=== PATIENT | female | born 1985 | race Caucasian/White ===

== ENCOUNTER 2019-11-11 06:57 | Emergency (ER) | payer OTHER, SELFPAY ==
[2019-11-11] VITALS (12 sets, daily range): BP systolic 82–121; BP diastolic 54–87; PULSE 67–95; RESP 13–20; TEMP 36.8; O2SAT 98–100; BMI 21.2
--- NOTE | 2019-11-11 07:21 | W.ED.ABDPA2 ---
HPI - Abdominal Pain General: Chief Complaint: Abdominal Pain Stated Complaint: abd pain Time Seen by Provider: 11/11/19 07:05 Source: patient Mode of arrival: ambulatory Limitations: no limitations History of Present Illness: HPI narrative: Patient comes in today with complaints of abdominal pain. Patient has had chronic abdominal pain for the last year. Patient states that today his just got worse that she could not tolerate it anymore. Patient has had a cholecystectomy and hysterectomy in the past. Patient reports seeing Dr. Dillard and having the EGD which was negative. Patient also had a CT scan and August [id number] that was negative for any abnormalities. Patient also reports EGD that was negative, and is to follow-up in [place] for possible stenting of a bile duct which they believe may be causing the pain. Patient reports some chills but no fever. Patient appears well. Patient appears in mild pain. Associated Symptoms: Reports nausea and vomiting Related Data: Date of Last Menstrual Period: 11/01/10 Review of Systems General: Reports: 10 or more systems reviewed and unremarkable except in HPI and below GI: Reports: abdominal pain, nausea and vomiting PFSH ED PFSH: Statuses (acute, chronic, etc) shown below reflect problem list status as previously entered and may not be historically accurate Social History Smoking and tobacco status: never smoked Female Reproductive History: Date of last menstrual period: 11/01/10 Physical Exam Const: COMMON NORMALS: no apparent distress and oriented x3 GENERAL APPEARANCE: cooperative HENMT: COMMON NORMALS: normocephalic, external ears normal, EAC's normal, TM's normal bilaterally and external nose normal HEAD & SCALP: normal to inspection and normocephalic FACE & SINUS: normal facial exam NOSE: external nose normal GENERAL EAR: hearing not grossly impaired EXTERNAL EAR: Yes external ears normal EXTERNAL AUDITORY CANAL: EAC's normal TYMPANIC MEMBRANE: TM's normal bilaterally MOUTH: oral and palatal mucosa normal THROAT: posterior oropharynx normal Eye: COMMON NORMALS: PERRL and EOMs intact bilaterally PUPIL: Yes PERRL Neck/C-Spine: COMMON NORMALS: full ROM and no lymphadenopathy Lymph: LYMPHATIC: no lymphedema noted Chest: COMMONS NORMALS: inspection of chest normal and palpation of chest normal Resp: COMMON NORMALS: normal respiratory effort and clear to auscultation bilaterally AUSCULTATION: clear to auscultation bilaterally Cardio: COMMON NORMALS: regular rate and regular rhythm RATE: regular rate RHYTHM: regular rhythm GI: COMMON NORMALS: normal to inspection, nondistended, normoactive bowel sounds PALPATION: Yes tender (epigastric) and No guarding : COMMON NORMALS: Yes no CVA tenderness BLADDER/KIDNEY EXAM: Yes no CVA tenderness Back/Pelvis: COMMON NORMALS: no CVA tenderness and thoracic and lumbar spine normal to inspection Extremity: COMMON NORMALS: normal to inspection GENERAL: No edema Neuro: COMMON NORMALS: oriented x3, moves all extremities and no focal motor deficits Psych: COMMON NORMALS: mental status grossly normal and cooperative Skin: COMMON NORMALS: no rashes or lesions noted GENERAL SKIN EXAM: no rashes or lesions noted Course ED course: 1010 Patient resting well. Reviewed CT scan and ultrasound with patient no significant abnormalities are noted CT scan was similar to previous one done in August. Ultrasound showed no abnormality. Reviewed with patient recommended acute hepatitis panel, discuss alcohol and Tylenol use. Patient reported minimal use of medication and alcohol. Patient denied any other use of medications or drugs. 1113, awaiting lab for hepatitis panel, patient reports no discomfort, resting well. agrees to plan at this time. wjw Vital Signs: Vital signs: Vital Signs Temperature 98.3 F 11/11/19 07:02 Pulse Rate 68 11/11/19 10:30 Respiratory Rate 13 11/11/19 10:30 Blood Pressure 96/54 11/11/19 10:30 Pulse Oximetry 99 11/11/19 10:30 MDM - Abdominal Pain MDM Narrative: Medical decision making narrative: Patient comes in today with exacerbation of abdominal pain. Patient reports she has had this pain for the last 6 months to a year. Patient states that she has been being evaluated by Dr. Dillard and was cleared with upper GI for any gastric reflux. Patient has been on several medications without much relief. Exam notes respirations are even lungs are clear to auscultation. Skin was warm and dry color was pink. Abdomen was soft with epigastric tenderness. Differential diagnosis includes appendicitis, abdominal pain unspecified, constipation, gastroenteritis, pancreatitis, common bile duct obstruction, cirrhosis, hepatitis. Laboratory values were significant for elevation in the ALT and AST and some mild elevation in bilirubin. Patient was treated in the ER with 1 L IV fluid, Zofran, and some morphine. Patient did have relief of discomfort. Reviewed exam with patient with recommendations for follow-up with Dr. Dillard. Patient was to have a appointment at [facility] in [place] for further treatment with concerns for possible stenting the common bile duct. Patient agreed to plan and need for follow-up. Differential Diagnosis: Differential diagnosis abdominal pain: Likely abdominal pain, acute appendicitis, constipation, gastroenteritis and pancreatitis Lab Data: Labs: Lab Results 11/11/19 11/11/19 11/11/19 Range/Units 07:15 07:15 07:15 WBC 4.5 (4.0-10.0) 10^3/ uL RBC 4.32 (4.1-5.3) 10^6/u L Hgb 14.1 (11.5-15.3) g/dL Hct 41.9 (37.0-47.0) % MCV 97.0 (81-99) fL MCH 32.6 (28.0-34.0) pg MCHC 33.7 (30.0-36.0) g/dL RDW 11.8 L (12.1-15.1) % Plt Count 185 (130-400) 10^3/c mm MPV 12.0 H (7.4-10.4) fL Neut % (Auto) 88.6 % Lymph % (Auto) 5.6 % [place] % (Auto) 5.6 % Eos % (Auto) 0.0 % Baso % (Auto) 0.0 % Neut # (Auto) 4.0 (1.8-7.7) 10^3/u L Lymph # (Auto) 0.3 L (0.8-4.8) 10^3/u L [place] # (Auto) 0.3 (0.2-0.9) 10^3/u L Eos # (Auto) 0.0 (0.0-0.8) 10^3/u L Baso # (Auto) 0.0 (0.0-0.1) 10^3/u L Nucleated RBC % (a uto) 0 % Nucleated RBCs # 0.0 /100WBC Sodium 136 (136-145) mmol/L Potassium 3.6 (3.5-5.1) mmol/L Chloride 104 (98-107) mmol/L Carbon Dioxide 22 (22-29) mmol/L Anion Gap 13.6 (5-19) BUN 9 (6-20) mg/dL Creatinine 0.8 (0.5-0.9) mg/dL GFR Calculation 81.6 L (90-130) mL/min Glucose 108 (74-109) mg/dL Lactate (0.5-2.2) mmol/L Calcium 9.5 (8.6-10.0) mg/Dl Total Bilirubin 2.0 H (0.15-1.2) mg/dL AST 380 H (0-32) U/L ALT 201 H (0-33) U/L Alkaline Phosphata se 81 (35-105) IU/L Total Protein 6.4 L (6.6-8.7) g/dL Albumin 4.5 (3.5-5.2) g/dL Globulin 1.9 (1.3-4.6) g/dL Lipase 30 (13-60) U/L Urine Color (Yellow) Urine Appearance (CLEAR) Urine pH (5-7) Ur Specific Gravit y (1.005-1.030) Urine Protein (Negative) Urine Glucose (UA) (Normal) Urine Ketones (Negative) Urine Occult Blood (Negative) Urine Nitrate (Negative) Urine Bilirubin (NEGATIVE) Prot Sulfosalicyli c Acd Urine Urobilinogen (Negative) mg/dL Ur Leukocyte Samra ase (Negative) Urine RBC (0-2) /hpf Urine WBC (0-5) /hpf Ur Squamous Epith Cells (0-5) Urine Bacteria (NONE) Urine Mucus Urine HCG, Qual Negative (Negative) Acetaminophen (10-30) ug/mL Ethyl Alcohol (0-10) mg/dL 11/11/19 11/11/19 11/11/19 Range/Units 07:15 07:15 07:28 WBC (4.0-10.0) 10^3/ uL RBC (4.1-5.3) 10^6/u L Hgb (11.5-15.3) g/dL Hct (37.0-47.0) % MCV (81-99) fL MCH (28.0-34.0) pg MCHC (30.0-36.0) g/dL RDW (12.1-15.1) % Plt Count (130-400) 10^3/c mm MPV (7.4-10.4) fL Neut % (Auto) % Lymph % (Auto) % [place] % (Auto) % Eos % (Auto) % Baso % (Auto) % Neut # (Auto) (1.8-7.7) 10^3/u L Lymph # (Auto) (0.8-4.8) 10^3/u L [place] # (Auto) (0.2-0.9) 10^3/u L Eos # (Auto) (0.0-0.8) 10^3/u L Baso # (Auto) (0.0-0.1) 10^3/u L Nucleated RBC % (a uto) % Nucleated RBCs # /100WBC Sodium (136-145) mmol/L Potassium (3.5-5.1) mmol/L Chloride (98-107) mmol/L Carbon Dioxide (22-29) mmol/L Anion Gap (5-19) BUN (6-20) mg/dL Creatinine (0.5-0.9) mg/dL GFR Calculation (90-130) mL/min Glucose (74-109) mg/dL Lactate 1.0 (0.5-2.2) mmol/L Calcium (8.6-10.0) mg/Dl Total Bilirubin (0.15-1.2) mg/dL AST (0-32) U/L ALT (0-33) U/L Alkaline Phosphata se (35-105) IU/L Total Protein (6.6-8.7) g/dL Albumin (3.5-5.2) g/dL Globulin (1.3-4.6) g/dL Lipase (13-60) U/L Urine Color (Yellow) Urine Appearance (CLEAR) Urine pH (5-7) Ur Specific Gravit y (1.005-1.030) Urine Protein (Negative) Urine Glucose (UA) (Normal) Urine Ketones (Negative) Urine Occult Blood (Negative) Urine Nitrate (Negative) Urine Bilirubin (NEGATIVE) Prot Sulfosalicyli c Acd Urine Urobilinogen (Negative) mg/dL Ur Leukocyte Samra ase (Negative) Urine RBC (0-2) /hpf Urine WBC (0-5) /hpf Ur Squamous Epith Cells (0-5) Urine Bacteria (NONE) Urine Mucus Urine HCG, Qual (Negative) Acetaminophen < 5.0 L (10-30) ug/mL Ethyl Alcohol < 10 (0-10) mg/dL 11/11/19 Range/Units 07:55 WBC (4.0-10.0) 10^3/ uL RBC (4.1-5.3) 10^6/u L Hgb (11.5-15.3) g/dL Hct (37.0-47.0) % MCV (81-99) fL MCH (28.0-34.0) pg MCHC (30.0-36.0) g/dL RDW (12.1-15.1) % Plt Count (130-400) 10^3/c mm MPV (7.4-10.4) fL Neut % (Auto) % Lymph % (Auto) % [place] % (Auto) % Eos % (Auto) % Baso % (Auto) % Neut # (Auto) (1.8-7.7) 10^3/u L Lymph # (Auto) (0.8-4.8) 10^3/u L [place] # (Auto) (0.2-0.9) 10^3/u L Eos # (Auto) (0.0-0.8) 10^3/u L Baso # (Auto) (0.0-0.1) 10^3/u L Nucleated RBC % (a uto) % Nucleated RBCs # /100WBC Sodium (136-145) mmol/L Potassium (3.5-5.1) mmol/L Chloride (98-107) mmol/L Carbon Dioxide (22-29) mmol/L Anion Gap (5-19) BUN (6-20) mg/dL Creatinine (0.5-0.9) mg/dL GFR Calculation (90-130) mL/min Glucose (74-109) mg/dL Lactate (0.5-2.2) mmol/L Calcium (8.6-10.0) mg/Dl Total Bilirubin (0.15-1.2) mg/dL AST (0-32) U/L ALT (0-33) U/L Alkaline Phosphata se (35-105) IU/L Total Protein (6.6-8.7) g/dL Albumin (3.5-5.2) g/dL Globulin (1.3-4.6) g/dL Lipase (13-60) U/L Urine Color Yellow (Yellow) Urine Appearance Hazy A (CLEAR) Urine pH 8 H (5-7) Ur Specific Gravit y 1.005 (1.005-1.030) Urine Protein Neg (Negative) Urine Glucose (UA) Norm (Normal) Urine Ketones 1+ H (Negative) Urine Occult Blood Neg (Negative) Urine Nitrate Negative (Negative) Urine Bilirubin Neg (NEGATIVE) Prot Sulfosalicyli c Acd Negative Urine Urobilinogen 4 H (Negative) mg/dL Ur Leukocyte Samra ase Negative (Negative) Urine RBC None (0-2) /hpf Urine WBC None (0-5) /hpf Ur Squamous Epith Cells 5-10 H (0-5) Urine Bacteria Trace (NONE) Urine Mucus Trace Urine HCG, Qual (Negative) Acetaminophen (10-30) ug/mL Ethyl Alcohol (0-10) mg/dL Discharge Plan Discharge Patient Disposition: Home, Self-Care Clinical Impression: Elevated liver enzymes Abdominal pain Qualifiers: Abdominal location: epigastric Qualified Code(s): R10.13 - Epigastric pain Condition: Stable Prescriptions: New dicyclomine 20 mg tablet 20 mg PO TID PRN (Reason: abdominal pain) Qty: 30 RF: 0 ondansetron HCl 4 mg tablet 4 mg PO Q8H PRN (Reason: nausea and vomiting) 4 Days Qty: 12 RF: 0 No Action doxycycline hyclate 100 mg Capsule 100 mg PO BID PRN (Reason: UTI) RF: 0 Discharge Orders: Discharge Order (Routine); Ordered 11/11/19 Ordered By: Jatinder Dawkins Referrals: Mike Dillard MD [Family Provider] - Discharge Diet: As Directed Discharge Activity: Resume usual activity Patient Instructions: Abdominal Pain (ED) Activity Restrictions/Additional Instructions: Drink plenty of fluids Activity as tolerated Avoid greasy, spicy and acidic foods Follow-up with primary care, Dr. Garcia Return to ER for uncontrolled pain or high fever Coding Level of Care Code ED Sales Development Executive for Mitchell Henry Exam Problem Focused
[2019-11-11 07:30] LABS: Hematocrit 41.9 % (37.0-47.0); Hemoglobin 14.1 g/dL (11.5-15.3); Lymphocytes # 0.3 10^3/uL (0.8-4.8); Lymphocytes % 5.6 %; Mean Corpuscular HGB Conc 33.7 g/dL (30.0-36.0); Mean Corpuscular Hemoglobin 32.6 pg (28.0-34.0); Monocytes # 0.3 10^3/uL (0.2-0.9); Monocytes % 5.6 %; Neutrophils % 88.6 %; Nucleated Red Blood Cells % 0 %; Platelet Count 185 10^3/cmm (130-400); Red Blood Count 4.32 10^6/uL (4.1-5.3); Red Cell Distribution Width 11.8 % (12.1-15.1); White Blood Count 4.5 10^3/uL (4.0-10.0)
[2019-11-11] MEDS: morphine 4 mg/mL SDV 1 mL 2 MG IVP (07:33)
[2019-11-11] MEDS: sodium chloride 0.9% 1,000 ML 999 ML IV (07:33)
[2019-11-11] MEDS: ondansetron 2 mg/ML SDV 2 mL 4 MG IVP (07:33)
[2019-11-11] MEDS: pantoprazole 40 mg SDV IVP (07:33)
[2019-11-11 07:41] LABS: Alanine Aminotransferase 201 U/L (0-33); Albumin Level 4.5 g/dL (3.5-5.2); Alkaline Phosphatase 81 IU/L (35-105); Anion Gap 13.6 (5-19); Aspartate Amino Transferase 380 U/L (0-32); Blood Urea Nitrogen 9 mg/dL (6-20); Calcium 9.5 mg/Dl (8.6-10.0); Carbon Dioxide 22 mmol/L (22-29); Chloride 104 mmol/L (98-107); Globulin 1.9 g/dL (1.3-4.6); Glomerular Filtration Rate 81.6 mL/min (90-130); Glucose 108 mg/dL (74-109); Lipase 30 U/L (13-60); Potassium 3.6 mmol/L (3.5-5.1); Sodium 136 mmol/L (136-145); Total Protein 6.4 g/dL (6.6-8.7)
--- NOTE | 2019-11-11 07:45 | USR_ITS ---
PROCEDURE INFORMATION: Exam: US Abdomen Limited, Right Upper Quadrant Exam date and time: 11/11/2019 8:03 AM Age: 33 years old Clinical indication: Abdominal pain; Prior surgery; Surgery date: 6+ months; Surgery type: Cholecystectomy, hysterectomy; Additional info: Epigastric pain, elevated lft's, HX of choley TECHNIQUE: Imaging protocol: Real-time ultrasound of the abdomen with image documentation. Examination was focused on the right upper quadrant. COMPARISON: CT abdomen pelvis with contrast August 29, 2019 US Renal Kidney Structu* [id number] 03/25/2016 8:46 AM FINDINGS: Liver: Liver normal in size and echotexture. No visualized masses. Main portal vein patent with flow in the appropriate direction toward the liver. Gallbladder: Status post cholecystectomy. No obvious abnormality seen in the gallbladder fossa. Common bile duct: The common duct measures 6 mm near the liver hilum and tapers distally, similar to prior CT. Pancreas: Visualized pancreas unremarkable. Right kidney: The right kidney measures 12.2 x 5.5 x 3.9 cm with normal cortical thickness and echogenicity. No hydronephrosis. No visualized stones or masses. Grossly normal Doppler of the renal hilum. Aorta: Abdominal aorta normal in caliber. Inferior vena cava: Visualized IVC normal in caliber. Intraperitoneal space: No free fluid. US/US abdomen limited [id number] IMPRESSION: 1. No acute findings. 2. Status post cholecystectomy.
--- NOTE | 2019-11-11 07:45 | CTR_ITS ---
PROCEDURE INFORMATION: Exam: CT Abdomen With Contrast Exam date and time: 11/11/2019 8:01 AM Age: 33 years old Clinical indication: Abdominal pain; Epigastric; Prior surgery; Surgery date: 6+ months; Surgery type: Gb, hysto; Additional info: Abd pain, elevated lft's TECHNIQUE: Imaging protocol: Computed tomography images of the abdomen with intravenous contrast. Enteric contrast not given. Total DLP: 368.76 mGy-cm Radiation optimization: All CT scans at this facility use at least one of these dose optimization techniques: automated exposure control; mA and/or kV adjustment per patient size (includes targeted exams where dose is matched to clinical indication); or iterative reconstruction. Contrast material: OMNI 300; Contrast volume: 95 ml; Contrast route: RT AC; COMPARISON: Right upper quadrant ultrasound today. CT abdomen pelvis w con* [id number] 08/29/2019 9:21 AM FINDINGS: Lungs: No acute findings within the included lung bases. Liver: The liver is normal in size. No lesions. Gallbladder and bile ducts: Mildly dilated intra and extrahepatic bile ducts similar to prior and presumably due to reservoir effect following cholecystectomy. No visualized ductal stones. Common duct measures a maximum of 6 mm in caliber. Pancreas: Normal. No ductal dilation. Spleen: Normal. No splenomegaly. Adrenals: Normal. No mass. Kidneys and ureters: The kidneys enhance normally. No hydronephrosis or masses. Stomach and bowel: Unremarkable. No obstruction. No inflammatory changes appreciated; lack of enteric contrast does limit evaluation. Intraperitoneal space: Unremarkable. No free air. No significant fluid collection. Lymph nodes: Unremarkable. No enlarged lymph nodes. Vasculature: Unremarkable. No abdominal aortic aneurysm. Bones/joints: No acute or aggressive osseous lesion. Soft tissues: Unremarkable. CT/CT abdomen w con* [id number] IMPRESSION: 1. No acute findings. 2. There is again mild dilation of the intra and extrahepatic ducts, similar to August 29, 2019 and presumably secondary to reservoir effect in the setting of cholecystectomy. Radiation Dose CTDIVOL = (mGy): DLP = 368.76 (mGy-cm)
--- NOTE | 2019-11-11 07:58 | PC.NURSE ---
pt ambulated self to bathroom, provided UA. UA in lab. pt back on the monitor and resting comfortably with no further needs stated.
[2019-11-11 08:32] LABS: Blood Urine Neg (Negative); Glucose Urine UA Norm (Normal); Ketones Urine 1+ (Negative); Nitrate Urine Negative (Negative); Protein Urine Neg (Negative); Specific Gravity, Urine 1.005 (1.005-1.030); Urine Appearance Hazy (CLEAR); Urine Color Yellow (Yellow); pH Urine 8 (5-7)
[2019-11-11 08:33] LABS: Bacteria Urine TRACE; Bilirubin Urine Neg (NEGATIVE); Leukocyte Esterase Urine Negative (Negative); Mucus Urine TRACE; Sulfosalicylic Acid Urine Negative; Urobilinogen Urine 4 mg/dL (Negative)
[2019-11-11 08:34] LABS: Add Urine Culture? No
[2019-11-11] MEDS: iohexol 300 mg/mL 100 mL Btl IV (08:45)
[2019-11-11 09:45] LABS: Acetaminophen < 5.0 ug/mL (10-30); Alcohol Level < 10 mg/dL (0-10)
[2019-11-11 13:58] LABS: Hepatitis A Antibody IgM. Non-Reactive (Nonreactive); Hepatitis B Core IgM Non-Reactive (Nonreactive); Hepatitis B Surface Antigen. Non-Reactive (Nonreactive); Hepatitis C Virus Antibody Non-Reactive (Nonreactive)
== END 2019-11-11 12:50 | disposition home or self-care (01) ==
PROVIDERS: Emergency Provider Nurse Practitioner Family; Family Provider Internal Medicine
DX: R10.13 Epigastric pain (principal); R74.8 Abnormal levels of other serum enzymes
CPT/HCPCS: 36415; 74160; 76705; 80053; 80074; 80307; 81001; 81025; 83605; 83690; 85025; 96360; 96374; 99282; C9113; J2270; J2405; J7030; Q9967

== ENCOUNTER → 2019-11-20 10:47 | Outpatient (BNVA) | payer OTHER, SELFPAY | PROVIDERS: Family Provider Internal Medicine; Visit Provider Family Medicine | DX: R74.8 Abnormal levels of other serum enzymes (principal) | CPT/HCPCS: 80076 ==

== ENCOUNTER → 2019-11-27 17:24 | Outpatient (BNVA) | payer OTHER, SELFPAY | PROVIDERS: Family Provider Internal Medicine; Visit Provider Family Medicine | DX: K83.4 Spasm of sphincter of Oddi (principal) | CPT/HCPCS: 80053; 83690; 85025 ==

== ENCOUNTER 2020-01-25 21:54 | Emergency (ER) | payer OTHER, SELFPAY ==
--- NOTE | 2020-01-25 22:01 | ED_ITS ---
Entered by Evangelina Nolasco, acting as scribe for Neil Lopez MD HPI - Abdominal Pain General: Chief Complaint: Abdominal Pain Stated Complaint: and pain Time Seen by Provider: 01/25/20 22:01 History of Present Illness: HPI narrative: 34 yo f came to the er pov for abd pain. Onset was today. Pt states that she was in the er in november and her liver enzymes were high. Pt said that she has been to see in [place] because of her liver and her pancreatic ducts both collapsed. She had 2 stents put in Dec 04. Pt said that her abd pain,the nausea and vomiting feels like it did when she came in, in November. Her doctor told her that the ducts might fail again. MD elicited complaint: abdominal pain Pertinent past history: other (stents) Onset (ago): day(s) (today) Pain Consistency: constant Location: [facility] Severity: moderate Quality: sharp Radiation: none Migration to: no migration Exacerbating factors: nothing Relieving factors: nothing Associated Symptoms: Reports nausea and vomiting; Denies fever(s) Related Data: Date of Last Menstrual Period: 11/01/10 Patient : No Review of Systems General: Reports: other (negative unless marked) Const: Denies: fever Resp: Denies: shortness of breath GI: Reports: nausea and vomiting Musc: Denies: neck pain Neuro: Denies: headache PFSH ED PFSH: Medical History (Updated 01/25/20 @ 22:36 by Neil Lopez MD) Sphincter of Oddi dysfunction Surgical History (Updated 12/19/19 @ 22:05 by AMERICO Felix) History of breast surgery History of delivery History of cholecystectomy History of hysterectomy Social History Smoking and tobacco status: never smoked Alcohol intake: never History of recent travel: No Female Reproductive History: Date of last menstrual period: 11/01/10 Physical Exam Const: COMMON NORMALS: no apparent distress, oriented x3 and healthy appearing HENMT: COMMON NORMALS: normocephalic and head/scalp atraumatic HEAD & SCALP: normocephalic and atraumatic Eye: COMMON NORMALS: PERRL and EOMs intact bilaterally PUPIL: Yes PERRL Neck/C-Spine: COMMON NORMALS: full ROM and supple Chest: COMMONS NORMALS: inspection of chest normal and palpation of chest normal Resp: COMMON NORMALS: normal respiratory effort, no retractions, no use of accessory muscles and clear to auscultation bilaterally AUSCULTATION: clear to auscultation bilaterally Cardio: COMMON NORMALS: regular rate, regular rhythm and no murmurs RATE: regular rate RHYTHM: regular rhythm GI: COMMON NORMALS: normal to inspection, nondistended, normoactive bowel sounds, soft to palpation, non-tender and no masses PALPATION: Yes soft Extremity: COMMON NORMALS: normal to inspection and full ROM Neuro: COMMON NORMALS: oriented x3, moves all extremities and no focal motor deficits Psych: COMMON NORMALS: mental status grossly normal, thought process normal and cooperative THOUGHT PROCESS: normal thought process Skin: COMMON NORMALS: no rashes or lesions noted and no wounds GENERAL SKIN EXAM: no rashes or lesions noted Course Vital Signs: Vital signs: Vital Signs Temperature 98.6 F 01/25/20 22:03 Pulse Rate 86 01/25/20 22:54 Respiratory Rate 18 01/25/20 22:54 Blood Pressure 104/66 01/25/20 22:54 Pulse Oximetry 97 01/25/20 22:54 MDM - Abdominal Pain MDM Narrative: Medical decision making narrative: Patient presents here with abdominal pain. Her pain is much improved here. She has had her gallbladder out. Exam shows no tenderness no signs of acute surgical abdomen. Patient's lab work including white count and lipase and liver enzymes are all normal. Patient is stable for discharge and return if worsening. Lab Data: Labs: Lab Results 01/25/20 01/25/20 01/25/20 Range/Units 22:08 22:08 22:25 WBC 6.1 (4.0-10.0) 10^3/ uL RBC 3.96 L (4.1-5.3) 10^6/u L Hgb 12.7 (11.5-15.3) g/dL Hct 39.1 (37.0-47.0) % MCV 98.7 (81-99) fL MCH 32.1 (28.0-34.0) pg MCHC 32.5 (30.0-36.0) g/dL RDW 11.9 L (12.1-15.1) % Plt Count 180 (130-400) 10^3/c mm MPV 11.7 H (7.4-10.4) fL Neut % (Auto) 73.3 % Lymph % (Auto) 19.5 % [place] % (Auto) 6.4 % Eos % (Auto) 0.3 % Baso % (Auto) 0.2 % Neut # (Auto) 4.5 (1.8-7.7) 10^3/u L Lymph # (Auto) 1.2 (0.8-4.8) 10^3/u L [place] # (Auto) 0.4 (0.2-0.9) 10^3/u L Eos # (Auto) 0.0 (0.0-0.8) 10^3/u L Baso # (Auto) 0.0 (0.0-0.1) 10^3/u L Nucleated RBC % (a uto) 0 % Nucleated RBCs # 0.0 /100WBC Sodium 139 (136-145) mmol/L Potassium 3.7 (3.5-5.1) mmol/L Chloride 104 (98-107) mmol/L Carbon Dioxide 23 (22-29) mmol/L Anion Gap 15.7 (5-19) BUN 11 (6-20) mg/dL Creatinine 0.9 (0.5-0.9) mg/dL GFR Calculation 70.8 L (90-130) mL/min Glucose 105 (65-115) mg/dL Calculated Osmolal ity 284 L (285-295) mOsm/k g Calcium 9.5 (8.5-10.5) mg/dL Total Bilirubin 0.4 (0.15-1.2) mg/dL AST 23 (0-32) U/L ALT 28 (0-33) U/L Alkaline Phosphata se 44 (35-105) IU/L Total Protein 6.6 (6.6-8.7) g/dL Albumin 4.4 (3.5-5.2) g/dL Globulin 2.2 (1.3-4.6) g/dL Lipase 18 (13-60) U/L Urine Color Yellow (Yellow) Urine Appearance Clear (CLEAR) Urine pH 5 (5-7) Ur Specific Gravit y 1.020 (1.005-1.030) Urine Protein Neg (Negative) Urine Glucose (UA) Norm (Normal) Urine Ketones Negative (Negative) Urine Blood Neg (Negative) Urine Nitrate Negative (Negative) Urine Bilirubin Neg (NEGATIVE) Urine Urobilinogen Norm (Negative) mg/dL Ur Leukocyte Samra ase Negative (Negative) Discharge Plan Discharge Patient Disposition: Home, Self-Care Clinical Impression: Abdominal pain Qualifiers: Abdominal location: generalized Qualified Code(s): R10.84 - Generalized abdominal pain Condition: Stable Prescriptions: New Zofran 4 mg tablet 4 mg PO QID PRN (Reason: nausea and vomiting) Qty: 14 RF: 0 No Action Zenpep 10,000-32,000 -42,000 unit capsule,delayed release(DR/EC) 1 cap PO .QAC Qty: 90 RF: 3 doxycycline hyclate 100 mg Capsule 100 mg PO BID PRN (Reason: UTI) RF: 0 dicyclomine 20 mg tablet 20 mg PO TID PRN (Reason: abdominal pain) Qty: 30 RF: 0 Discharge Orders: Discharge Order (Routine); Ordered 01/25/20 Ordered By: Neil Lopez Referrals: Mike Dillard MD [Primary Care Provider] - 4-7 days Discharge Diet: Advance as tolerated Discharge Activity: Resume usual activity Patient Instructions: Abdominal Pain (ED) Discharge Date/Time: 01/25/20 22:55 Coding Level of Care Code ED Senior Medical Director for [facility] The documentation recorded by the Gaurav white Stephanie Lyn, accurately reflects the service I personally performed and the decisions made by John armstrong Korby, MD Jan 25, 2020 21:54
[2020-01-25 22:03] VITALS: BP 129/88; PULSE 66; RESP 16; TEMP 37; O2SAT 100; BMI 20.5
[2020-01-25 22:14] LABS: Basophils % 0.2 %; Eosinophils % 0.3 %; Hematocrit 39.1 % (37.0-47.0); Hemoglobin 12.7 g/dL (11.5-15.3); Lymphocytes # 1.2 10^3/uL (0.8-4.8); Lymphocytes % 19.5 %; Mean Corpuscular HGB Conc 32.5 g/dL (30.0-36.0); Mean Corpuscular Hemoglobin 32.1 pg (28.0-34.0); Mean Corpuscular Volume 98.7 fL (81-99); Mean Platelet Volume 11.7 fL (7.4-10.4); Monocytes # 0.4 10^3/uL (0.2-0.9); Monocytes % 6.4 %; Neutrophils # 4.5 10^3/uL (1.8-7.7); Neutrophils % 73.3 %; Nucleated Red Blood Cells % 0 %; Platelet Count 180 10^3/cmm (130-400); Red Blood Count 3.96 10^6/uL (4.1-5.3); Red Cell Distribution Width 11.9 % (12.1-15.1); White Blood Count 6.1 10^3/uL (4.0-10.0)
[2020-01-25 22:19] VITALS: RESP 16; O2SAT 98
[2020-01-25] MEDS: morphine 4 mg/mL SDV 1 mL IVP (22:19)
[2020-01-25] MEDS: sodium chloride 0.9% 1,000 ML 999 ML IV (22:19)
[2020-01-25] MEDS: ondansetron 2 mg/ML SDV 2 mL 4 MG IVP (22:19)
[2020-01-25 22:31] LABS: Alanine Aminotransferase 28 U/L (0-33); Albumin Level 4.4 g/dL (3.5-5.2); Alkaline Phosphatase 44 IU/L (35-105); Anion Gap 15.7 (5-19); Aspartate Amino Transferase 23 U/L (0-32); Blood Urea Nitrogen 11 mg/dL (6-20); Calcium 9.5 mg/dL (8.5-10.5); Carbon Dioxide 23 mmol/L (22-29); Chloride 104 mmol/L (98-107); Globulin 2.2 g/dL (1.3-4.6); Glomerular Filtration Rate 70.8 mL/min (90-130); Glucose 105 mg/dL (65-115); Lipase 18 U/L (13-60); Osmolality Calculated 284 mOsm/kg (285-295); Potassium 3.7 mmol/L (3.5-5.1); Sodium 139 mmol/L (136-145); Total Bilirubin 0.4 mg/dL (0.15-1.2); Total Protein 6.6 g/dL (6.6-8.7)
[2020-01-25 22:46] LABS: Add Urine Microscopic? NO
[2020-01-25 22:47] LABS: Bilirubin Urine Neg (NEGATIVE); Blood Urine Neg (Negative); Glucose Urine UA Norm (Normal); Ketones Urine Negative (Negative); Leukocyte Esterase Urine Negative (Negative); Nitrate Urine Negative (Negative); Protein Urine Neg (Negative); Urine Appearance Clear (CLEAR); Urine Color Yellow (Yellow); Urobilinogen Urine Norm (Negative); pH Urine 5 (5-7)
[2020-01-25 22:54] VITALS: BP 104/66; PULSE 86; RESP 18; O2SAT 97
== END 2020-01-25 22:55 | disposition home or self-care (01) ==
PROVIDERS: Emergency Provider Emergency Medicine; Family Provider Internal Medicine; PCP Internal Medicine
DX: R10.9 Unspecified abdominal pain (principal); Z90.49 Acquired absence of other specified parts of digestive tract
CPT/HCPCS: 12345; 80053; 81003; 83690; 85025; 96361; 96374; 96375; 99282; 99283; A9270; J2270; J2405; J7030

== ENCOUNTER → 2020-04-19 09:38 | Outpatient (BNVA) | payer OTHER, SELFPAY | PROVIDERS: Family Provider Internal Medicine; PCP Family Medicine; Visit Provider Nurse Practitioner Family | DX: Z11.59 Encounter for screening for other viral diseases (principal); R11.0 Nausea; R14.0 Abdominal distension (gaseous); R53.83 Other fatigue; R10.13 Epigastric pain | CPT/HCPCS: 80053; 82150; 83690; 85025 ==

== ENCOUNTER 2020-05-26 18:38 | Emergency (ER) | payer OTHER, SELFPAY ==
[2020-05-26 19:02] VITALS: BP 122/85; PULSE 77; RESP 14; TEMP 36.8; O2SAT 98; BMI 20.8
--- NOTE | 2020-05-26 19:16 | ED_ITS ---
HPI - Abdominal Pain General: Chief Complaint: Abdominal Pain Stated Complaint: abd pain/post op Time Seen by Provider: 05/26/20 19:05 Source: patient Mode of arrival: ambulatory Limitations: no limitations History of Present Illness: HPI narrative: Patient is a 34-year-old female who presents to ED today with complaint of upper abdominal pain. 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 She tells me she was not discharged home with any pain medications. She fears the procedure has caused pancreatitis. She tells me she is having severe nausea. She has not been running fevers. MD elicited complaint: abdominal pain Onset (ago): day(s) Pain Consistency: constant Location: Epigastric, LUQ, RUQ and LLQ Severity: severe Quality: sharp Radiation: back Migration to: no migration Exacerbating factors: eating and movement Relieving factors: nothing Context: recent surgery/procedure (ERCP) and history of similar episodes Associated Symptoms: Reports nausea; Denies chills, constipation, diarrhea, dysuria, fever(s) and vomiting Related Data: Date of Last Menstrual Period: 11/01/10 Patient : No Review of Systems Const: Denies: fever(s) or chills Card: Denies: chest pain Resp: Denies: dyspnea GI: Reports: abdominal pain and nausea; Denies: vomiting, diarrhea or constipation : Denies: flank pain, difficulty voiding, dysuria, urinary frequency, urinary urgency or urinary hesitancy Musc: Denies: neck pain or back pain Skin/Breast: Denies: rash Neuro: Denies: headache(s), numbness in extremities, weakness in extremities or sensory changes PFS ED PFSH: Medical History (Updated 05/26/20 @ 20:54 by SAMREEN Argueta) Sphincter of Oddi dysfunction Surgical History History of breast surgery History of delivery History of cholecystectomy History of hysterectomy Family History Family/Other Cancer 2 paternal aunts Diabetes Grandfather Stroke paternal Father Myocardial infarction Mother Thyroid disease Other Hypertension Social History Smoking and tobacco status: never smoked Alcohol intake: never History of recent travel: No Female Reproductive History: Date of last menstrual period: 11/01/10 Physical Exam Const: COMMON NORMALS: average body habitus, patient oriented x3, no limitations, healthy appearing, alert and well nourished GENERAL APPEARANCE: cooperative and in distress (appears uncomfortable ) Resp: COMMON NORMALS: normal respiratory effort and clear to auscultation bilaterally AUSCULTATION: clear to auscultation bilaterally Cardio: COMMON NORMALS: regular rate and regular rhythm RATE: regular rate RHYTHM: regular rhythm GI: COMMON NORMALS: No hepatosplenomegaly present and no masses INSPECTION: Yes normal to inspection AUSCULTATION: Yes normoactive bowel sounds PALPATION: Yes Tenderness to palpation present (GI) (severe pain to upper abdomen) and Yes No hepatosplenomegaly present : COMMON NORMALS: Yes no CVA tenderness BLADDER/KIDNEY EXAM: Yes no CVA tenderness Back/Pelvis: COMMON NORMALS: no CVA tenderness Neuro: COMMON NORMALS: patient oriented x3 SENSORIUM/ORIENTATION: Yes alert Skin: COMMON NORMALS: no rashes or lesions noted GENERAL SKIN EXAM: no rashes or lesions noted Course Consultations: Consultation #1: Dr. Barnard-commission associate for GI/endoscopy; did not recommend any further management or imaging at this time. Vital Signs: Vital signs: Vital Signs Temperature 98.2 F 05/26/20 19:02 Pulse Rate 80 05/26/20 19:31 Respiratory Rate 16 05/26/20 19:41 Blood Pressure 124/83 05/26/20 19:31 Pulse Oximetry 100 05/26/20 19:41 MDM - Abdominal Pain MDM Narrative: Medical decision making narrative: Patient's LFTs and lipase are normal. She has no white count. No fevers. Spoke to at [facility] who did not recommend any imaging at this time. Stated it was appropriate to treat pts pain and have her contact the office tomorrow for followup Lab Data: Labs: Lab Results 05/26/20 05/26/20 05/26/20 Range/Units 19:21 19:21 19:21 WBC 4.6 (4.0-10.0) 10^3/ uL RBC 3.99 L (4.1-5.3) 10^6/u L Hgb 13.0 (11.5-15.3) g/dL Hct 39.2 (37.0-47.0) % MCV 98.2 (81-99) fL MCH 32.6 (28.0-34.0) pg MCHC 33.2 (30.0-36.0) g/dL RDW 11.5 L (12.1-15.1) % Plt Count 226 (130-400) 10^3/c mm MPV 11.7 H (7.4-10.4) fL Neut % (Auto) 58.5 % Lymph % (Auto) 31.2 % [place] % (Auto) 9.0 % Eos % (Auto) 0.7 % Baso % (Auto) 0.4 % Neut # (Auto) 2.66 (1.8-7.7) 10^3/u L Lymph # (Auto) 1.4 (0.8-4.8) 10^3/u L [place] # (Auto) 0.4 (0.2-0.9) 10^3/u L Eos # (Auto) 0.0 (0.0-0.8) 10^3/u L Baso # (Auto) 0.0 (0.0-0.1) 10^3/u L Nucleated RBC % (a uto) 0 % Nucleated RBCs # 0.0 /100WBC Sodium 140 (136-145) mmol/L Potassium 3.6 (3.5-5.1) mmol/L Chloride 105 (98-107) mmol/L Carbon Dioxide 27 (22-29) mmol/L Anion Gap 11.6 (5-19) BUN 9 (6-20) mg/dL Creatinine 0.8 (0.5-0.9) mg/dL GFR Calculation 81.2 L (90-130) mL/min Glucose 91 (65-115) mg/dL Calculated Osmolal ity 286 (285-295) mOsm/k g Calcium 9.7 (8.5-10.5) mg/dL Total Bilirubin 0.4 (0.15-1.2) mg/dL AST 20 (0-32) U/L ALT 18 (0-33) U/L Alkaline Phosphata se 49 (35-105) IU/L Total Protein 6.6 (6.6-8.7) g/dL Albumin 4.6 (3.5-5.2) g/dL Globulin 2.0 (1.3-4.6) g/dL Lipase 30 (13-60) U/L HCG, Qual Negative (Negative) Urine Color (Yellow) Urine Appearance (CLEAR) Urine pH (5-7) Ur Specific Gravit y (1.005-1.030) Urine Protein (Negative) Urine Glucose (UA) (Normal) Urine Ketones (Negative) Urine Blood (Negative) Urine Nitrate (Negative) Urine Bilirubin (NEGATIVE) Urine Urobilinogen (Negative) mg/dL Ur Leukocyte Samra ase (Negative) 05/26/20 Range/Units 20:10 WBC (4.0-10.0) 10^3/ uL RBC (4.1-5.3) 10^6/u L Hgb (11.5-15.3) g/dL Hct (37.0-47.0) % MCV (81-99) fL MCH (28.0-34.0) pg MCHC (30.0-36.0) g/dL RDW (12.1-15.1) % Plt Count (130-400) 10^3/c mm MPV (7.4-10.4) fL Neut % (Auto) % Lymph % (Auto) % [place] % (Auto) % Eos % (Auto) % Baso % (Auto) % Neut # (Auto) (1.8-7.7) 10^3/u L Lymph # (Auto) (0.8-4.8) 10^3/u L [place] # (Auto) (0.2-0.9) 10^3/u L Eos # (Auto) (0.0-0.8) 10^3/u L Baso # (Auto) (0.0-0.1) 10^3/u L Nucleated RBC % (a uto) % Nucleated RBCs # /100WBC Sodium (136-145) mmol/L Potassium (3.5-5.1) mmol/L Chloride (98-107) mmol/L Carbon Dioxide (22-29) mmol/L Anion Gap (5-19) BUN (6-20) mg/dL Creatinine (0.5-0.9) mg/dL GFR Calculation (90-130) mL/min Glucose (65-115) mg/dL Calculated Osmolal ity (285-295) mOsm/k g Calcium (8.5-10.5) mg/dL Total Bilirubin (0.15-1.2) mg/dL AST (0-32) U/L ALT (0-33) U/L Alkaline Phosphata se (35-105) IU/L Total Protein (6.6-8.7) g/dL Albumin (3.5-5.2) g/dL Globulin (1.3-4.6) g/dL Lipase (13-60) U/L HCG, Qual (Negative) Urine Color Yellow (Yellow) Urine Appearance Clear (CLEAR) Urine pH 5 (5-7) Ur Specific Gravit y 1.020 (1.005-1.030) Urine Protein Neg (Negative) Urine Glucose (UA) Norm (Normal) Urine Ketones Negative (Negative) Urine Blood Neg (Negative) Urine Nitrate Negative (Negative) Urine Bilirubin Neg (NEGATIVE) Urine Urobilinogen Norm (Negative) mg/dL Ur Leukocyte Samra ase Negative (Negative) Discharge Plan Discharge Patient Disposition: Home Clinical Impression: Post-operative pain Condition: Stable Prescriptions: New hydrocodone-acetaminophen 5-325 mg tablet 1 tab PO Q6H PRN (Reason: pain) Qty: 15 RF: 0 No Action amoxicillin-pot clavulanate [Augmentin] 875-125 mg tablet 1 tab PO BID Qty: 14 RF: 0 Mucinex 1,200 mg tablet extended release 12hr 1,200 mg PO BID Qty: 14 RF: 0 pantoprazole 20 mg tablet,delayed release (DR/EC) 20 mg PO DAILY Qty: 30 RF: 0 dicyclomine 20 mg tablet 20 mg PO TID PRN (Reason: abdominal pain) Qty: 30 RF: 0 Zenpep 10,000-32,000 -42,000 unit capsule,delayed release(DR/EC) 1 cap PO .QAC Qty: 150 RF: 8 Zofran 4 mg tablet 4 mg PO QID PRN (Reason: nausea and vomiting) Qty: 14 RF: 0 Discharge Orders: Discharge Order (Routine); Ordered 05/26/20 Ordered By: Maggie Jiang Referrals: Madison Ireland DO [Primary Care Provider] - Activity Restrictions/Additional Instructions: As discussed please contact your surgeon's office tomorrow to schedule follow-up visit. You may take pain medications as prescribed for severe pain. Return to the emergency department for worsening or severe abdominal pain, repetitive episodes of vomiting, fevers greater than 100.4, or any other concerns you may have. I hope you begin to feel better soon. Coding Level of Care Code ED Farm Technician for [facility] Exam Detailed
[2020-05-26 19:31] VITALS: BP 124/83; PULSE 80; RESP 16; O2SAT 100
[2020-05-26 19:31] LABS: Basophils % 0.4 %; Eosinophils % 0.7 %; Hematocrit 39.2 % (37.0-47.0); Lymphocytes # 1.4 10^3/uL (0.8-4.8); Lymphocytes % 31.2 %; Mean Corpuscular HGB Conc 33.2 g/dL (30.0-36.0); Mean Corpuscular Hemoglobin 32.6 pg (28.0-34.0); Mean Corpuscular Volume 98.2 fL (81-99); Mean Platelet Volume 11.7 fL (7.4-10.4); Monocytes # 0.4 10^3/uL (0.2-0.9); Neutrophils # 2.66 10^3/uL (1.8-7.7); Neutrophils % 58.5 %; Nucleated Red Blood Cells % 0 %; Platelet Count 226 10^3/cmm (130-400); Red Blood Count 3.99 10^6/uL (4.1-5.3); Red Cell Distribution Width 11.5 % (12.1-15.1); White Blood Count 4.6 10^3/uL (4.0-10.0)
[2020-05-26 19:32] VITALS: O2SAT 100
[2020-05-26 19:41] VITALS: RESP 16; O2SAT 100
[2020-05-26] MEDS: fentaNYL 50 mcg/mL INJ 2mL IVP (19:41)
[2020-05-26] MEDS: ondansetron 2 mg/ML SDV 2 mL 4 MG IVP (19:42)
[2020-05-26 19:44] LABS: Alanine Aminotransferase 18 U/L (0-33); Albumin Level 4.6 g/dL (3.5-5.2); Alkaline Phosphatase 49 IU/L (35-105); Anion Gap 11.6 (5-19); Aspartate Amino Transferase 20 U/L (0-32); Blood Urea Nitrogen 9 mg/dL (6-20); Calcium 9.7 mg/dL (8.5-10.5); Carbon Dioxide 27 mmol/L (22-29); Chloride 105 mmol/L (98-107); Creatinine Clr Calc Pharmacy 96.9895; Glomerular Filtration Rate 81.2 mL/min (90-130); Glucose 91 mg/dL (65-115); Lipase 30 U/L (13-60); Osmolality Calculated 286 mOsm/kg (285-295); Potassium 3.6 mmol/L (3.5-5.1); Sodium 140 mmol/L (136-145); Total Bilirubin 0.4 mg/dL (0.15-1.2); Total Protein 6.6 g/dL (6.6-8.7)
[2020-05-26 20:16] LABS: HCG, Serum Qual Negative (Negative)
[2020-05-26 20:47] LABS: Add Urine Microscopic? NO
[2020-05-26 20:54] LABS: Bilirubin Urine Neg (NEGATIVE); Blood Urine Neg (Negative); Glucose Urine UA Norm (Normal); Ketones Urine Negative (Negative); Leukocyte Esterase Urine Negative (Negative); Nitrate Urine Negative (Negative); Protein Urine Neg (Negative); Urine Appearance Clear (CLEAR); Urine Color Yellow (Yellow); Urobilinogen Urine Norm (Negative); pH Urine 5 (5-7)
[2020-05-26 21:06] VITALS: BP 122/71; PULSE 72; RESP 17; O2SAT 100
[2020-05-26] MEDS: HYDROcodone-acetaminophen 5-325 mg Tablet 3 TAB PO (21:06)
== END 2020-05-26 21:09 | disposition home or self-care (01) ==
PROVIDERS: Emergency Provider Physician Assistant; PCP Family Medicine
DX: G89.18 Other acute postprocedural pain (principal)
CPT/HCPCS: 12345; 36415; 80053; 81003; 83690; 84703; 85025; 96374; 96375; 99283; J2405; J3010

== ENCOUNTER 2020-07-10 12:24 | Outpatient (CLI) | payer SELFPAY | END 2020-07-10 12:25 | disposition home or self-care (01) | LOC: LAB 12:25 | PROVIDERS: PCP Family Medicine; Visit Provider Nurse Practitioner | DX: R19.7 Diarrhea, unspecified (principal) | CPT/HCPCS: 87493; 87506 ==

== ENCOUNTER → 2020-07-16 13:30 | Outpatient (BNVA) | payer SELFPAY | PROVIDERS: PCP Family Medicine; Visit Provider Nurse Practitioner | DX: N39.0 Urinary tract infection, site not specified (principal) | CPT/HCPCS: 80053 ==

== ENCOUNTER → 2020-07-29 08:12 | Outpatient (BNVA) | payer OTHER, SELFPAY | PROVIDERS: PCP Family Medicine; Visit Provider Internal Medicine | DX: Z20.828 Contact with and (suspected) exposure to other viral communicable diseases (principal) | CPT/HCPCS: 87635 ==

== ENCOUNTER 2020-08-02 07:58 | Day surgery (SDC) | payer OTHER, SELFPAY ==
[2020-07-31 13:21] VITALS: BMI 20.5
--- NOTE | 2020-08-02 08:14 | W.PM.OPSUD ---
Surgery/Procedure H&P Update DATE OF PROCEDURE: August 02, 2020 DATE H&P PERFORMED: 07/22/20 PLANNED PROCEDURE: Operation Date: 08/02/20 09:45 Proposed Procedures p Colonoscopy k92.1 04964(Not Applicable) - Mike Dillard MD
[2020-08-02 08:53] VITALS: BP 115/86; PULSE 73; RESP 18; TEMP 36.4; O2SAT 73
[2020-08-02] MEDS: sodium chloride 0.9% 1,000 ML 30 ML IV (08:56)
--- NOTE | 2020-08-02 09:59 | ANES.PREANE2 ---
Pre-Anesthetic Assessment Pre-Anesthetic Assessment: Height/Weight: Height 1.73 m Weight 61.235 kg Temp Pulse Resp BP Pulse Ox 97.6 F 73 18 115/86 73 L 08/02/20 08:53 08/02/20 08:53 08/02/20 08:53 08/02/20 08:53 08/02/20 08:53 Preop Diagnosis: Hematochezia Proposed Procedure: Operation Date: 08/02/20 09:45 Proposed Procedures p Colonoscopy k92.1 53102(Not Applicable) - Mike Dillard MD Was Beta [place] taken within 24 hours: N/A Last intake: Intake Last Liquid Date 08/01/20 Last Liquid Time 21:00 Last Solid Date 07/31/20 Social: Social History: Alcohol and No tobacco Exam: Pre-Anes Outpt Exam: alert, oriented x 3, clear to auscultation bilaterally and regular rate & rhythm Airway: Submandibular: WNL Cervical ROM: WNL MP: 1 Dentition: Full History/ROS: No significant history except as noted and No significant complaints Pulmonary: Pulmonary: None reported CV/HEM: CV/HEM: None reported : : None reported Hepatic: Hepatic: None reported Comments: pancreatic duct stent GI: GI: None reported Metabolic: Metabolic: None reported Musc/skel: Musc/skel: None reported Neuropsych: Neuropsych: None reported Anesthetic Plan: ASA status: 2 Anesthesia: MAC Risk of > 500 ml blood loss (7ml/kg in children): No Meds/Allergies Current Medications: Current Medications Generic Name Dose Route Start Last Admin Trade Name Freq PRN Reason Stop Dose Admin Sodium Chloride 1,000 mls @ 30 ml s/hr 08/02/20 08:45 08/02/20 08:56 Sodium Chloride 0.9% IV 30 mls/hr .Q24H MICHAEL Administration PFSH Anesthesia PFSH: Medical History (Updated 07/22/20 @ 15:43 by Mike Dillard MD) Sphincter of Oddi dysfunction Surgical History History of breast surgery History of delivery History of cholecystectomy History of hysterectomy Family History Family/Other Cancer 2 paternal aunts Diabetes Grandfather Stroke paternal Father Myocardial infarction Mother Thyroid disease Other Hypertension Social History Smoking and tobacco status: never smoked Alcohol intake: never History of recent travel: No Female Reproductive History: Date of last menstrual period: 11/01/10 Data Anesthesia Cardiac Studies: No Data to Display
[2020-08-02 10:20] VITALS: BP 96/64; PULSE 73; RESP 18; TEMP 5386.6; TEMP 9728; O2SAT 100
[2020-08-02 10:38] VITALS: BP 107/64; PULSE 72; RESP 18; O2SAT 100
--- NOTE | 2020-08-02 10:50 | ANE.PACU2 ---
Inpatient post-anesthesia follow up: Airway intact: Yes Vital signs: Temperature 9728 F Pulse Rate 72 Respiratory Rate 18 Blood Pressure 107/64 Pulse Oximetry 100 Oxygen Delivery Me thod Room Air Oxygen Flow Rate 2 Fraction of Inspir ed Oxygen Hydration adequate: Yes Nausea and vomiting: No Pain level: 1 Mental status: Baseline
== END 2020-08-02 10:50 | disposition home or self-care (01) ==
PROVIDERS: PCP Family Medicine; Visit Provider Internal Medicine
PROC: 0DJD8ZZ Inspection of Lower Intestinal Tract, Via Natural or Artificial Opening Endoscopic (ICD-10-PCS; CPT 45378; principal; 2020-08-02 09:45)
DX: K92.1 Melena (principal); K86.81 Exocrine pancreatic insufficiency; R19.7 Diarrhea, unspecified
CPT/HCPCS: 12345; 45378; J2704; J7030

== ENCOUNTER → 2020-09-16 17:02 | Outpatient (BNVA) | payer OTHER, SELFPAY | PROVIDERS: PCP Family Medicine; Visit Provider Family Medicine | DX: Z11.59 Encounter for screening for other viral diseases (principal); Z20.828 Contact with and (suspected) exposure to other viral communicable diseases | CPT/HCPCS: 87635 ==

== ENCOUNTER → 2020-11-22 11:19 | Outpatient (BNVA) | payer OTHER, SELFPAY | PROVIDERS: PCP Family Medicine; Visit Provider Nurse Practitioner | DX: N39.0 Urinary tract infection, site not specified (principal); A49.9 Bacterial infection, unspecified | CPT/HCPCS: 81003; 87077; 87086; 87184 ==

== ENCOUNTER → 2020-12-31 00:01 | Outpatient (BNVA) | payer OTHER, SELFPAY | PROVIDERS: PCP Family Medicine; Visit Provider Nurse Practitioner | DX: N39.0 Urinary tract infection, site not specified (principal); R30.0 Dysuria | CPT/HCPCS: 81003; 87077; 87086; 87184 ==

== ENCOUNTER → 2021-01-06 14:09 | Outpatient (BNVA) | payer OTHER, SELFPAY | PROVIDERS: PCP Family Medicine; Visit Provider Nurse Practitioner Family | DX: A49.9 Bacterial infection, unspecified (principal); N39.0 Urinary tract infection, site not specified | CPT/HCPCS: 81003 ==

== ENCOUNTER → 2021-02-19 15:55 | Outpatient (BNVA) | payer OTHER, SELFPAY | PROVIDERS: PCP Family Medicine; Visit Provider Urology | DX: A49.9 Bacterial infection, unspecified (principal); N30.20 Other chronic cystitis without hematuria | CPT/HCPCS: 81003 ==

== ENCOUNTER 2021-03-13 11:35 | Outpatient (CLI) | payer OTHER, SELFPAY ==
--- NOTE | 2021-03-13 11:42 | XR_ITS ---
WS: [id number] FOOT LEFT TECHNIQUE: 3 views of the left foot CLINICAL INFORMATION: S99.922A - Unspecified injury of left foot, initial encou... COMPARISON: None. FINDINGS: No evidence of acute fracture or dislocation. Normal tarsal metatarsal alignment. Normal calcaneus. N ormal visualized talar dome. No acute findings. XR/XR foot LT min 3V* [id number] IMPRESSION: Normal left foot.
== END 2021-03-13 11:36 | disposition home or self-care (01) ==
LOC: RADWPI 11:41
PROVIDERS: PCP Family Medicine; Visit Provider Nurse Practitioner
DX: S99.922A Unspecified injury of left foot, initial encounter (principal); X58.XXXA Exposure to other specified factors, initial encounter
CPT/HCPCS: 73630

== ENCOUNTER → 2021-03-25 16:20 | Outpatient (BNVA) | payer OTHER, SELFPAY | PROVIDERS: PCP Family Medicine; Visit Provider Nurse Practitioner Family | DX: G62.9 Polyneuropathy, unspecified (principal); R20.2 Paresthesia of skin; R60.0 Localized edema; K86.81 Exocrine pancreatic insufficiency | CPT/HCPCS: 80053; 82607; 82746; 83550; 84443; 85025 ==

== ENCOUNTER 2021-03-26 15:20 | Outpatient (CLI) | payer OTHER, SELFPAY ==
--- NOTE | 2021-03-26 15:45 | USCV_ITS ---
Nicole Herrera Age: 35 Gender: F : 1985 Exam Date: 03/26/2021 15:36 Ordering Phys: Cass Justin APRN Technologist: Vickie Cevallos Exam Location: [facility] Indication: SWELLING HISTORY: Lower extremity swelling. PROCEDURES: Venous duplex imaging was performed in only the left lower extremity. The following venous structures were evaluated: common femoral vein, profunda vein, proximal portion of the greater saphenous vein, superficial femoral vein, and the popliteal vein. In addition, the posterior tibial and peroneal trunk were evaluated. FINDINGS: Normal 2-D Doppler and augmentation and compressibility throughout the lower extremity venous structures. Additional imaging through the proximal calf veins also reveals no thrombus. Limited evaluation of the greater saphenous vein is patent with no thrombus. CONCLUSIONS No DVT left lower extremity. Dr. Azalea Montanez DO (Electronically Signed) Final Date: 26 Mar 2021 15:58 S
== END 2021-03-26 15:21 | disposition home or self-care (01) ==
LOC: RAD 15:25
PROVIDERS: PCP Family Medicine; Visit Provider Nurse Practitioner Family
DX: M79.662 Pain in left lower leg (principal); M79.89 Other specified soft tissue disorders
CPT/HCPCS: 93971

== ENCOUNTER → 2021-04-17 10:35 | Outpatient (BNVA) | payer OTHER, SELFPAY | PROVIDERS: PCP Family Medicine; Visit Provider Nurse Practitioner | DX: B34.9 Viral infection, unspecified (principal) | CPT/HCPCS: 87426 ==

== ENCOUNTER 2021-04-19 11:45 | Observation (INO) | payer OTHER, SELFPAY ==
[2021-04-19] VITALS (8 sets, daily range): BP systolic 100–126; BP diastolic 67–84; PULSE 67–83; RESP 15–18; TEMP 36.7–37.3; O2SAT 98–100; BMI 20.7
--- NOTE | 2021-04-19 12:15 | XRR_ITS ---
PROCEDURE INFORMATION: Exam: XR Chest Exam date and time: 04/19/2021 12:15 PM Age: 35 years old Clinical indication: Other: Weak; Additional info: Covid TECHNIQUE: Imaging protocol: XR of the chest. Views: 1 view. COMPARISON: CR Chest 2 views* [id number] 04/06/2015 8:24 PM FINDINGS: Lungs: Unremarkable. No consolidation. Pleural spaces: Unremarkable. No pleural effusion. No pneumothorax. Heart/Mediastinum: Unremarkable. No cardiomegaly. Bones/joints: Unremarkable. XR/XR chest 1V portable [id number] IMPRESSION: No acute findings.
[2021-04-19] MEDS: sodium chloride 0.9% 1,000 ML 999 ML IV (12:49)
--- NOTE | 2021-04-19 12:51 | ED_ITS ---
HPI - COVID General: Chief Complaint: COVID symptoms Stated Complaint: COVID+, dizzy,ABD pain, sweating Time Seen by Provider: 04/19/21 11:50 Source: patient Mode of arrival: ambulatory Limitations: no limitations Triage information: No fever, cough or shortness of breath . Exposure to COVID + person last 14 days History of Present Illness: HPI Narrative: Patient is a 35-year-old female with a history of exocrine pancreas insufficiency who presents to the emergency department with nausea, reduced appetite, diarrhea, loss of taste and smell. She tested positive for COVID-19 2 days ago and her symptoms have not been progressively worsening. Symptoms started ED before she was tested. She feels dizzy and lightheaded but no syncopal episode. No chest pain. No urinary symptoms. MD complaint: known COVID positive Prior covid testing: yes, results known COVID 19 common symptoms: positive chills, dyspnea, fatigue, loss of sense of smell and/or taste, nasal congestion, nausea and diarrhea; negative vomiting COVID 19 other sytmptoms: negative chest pain, pleuritic pain, requiring oxygen, requiring more oxygen, respiratory distress, cyanosis, lethargy, confusion, new neurological complaints or other concerning symptoms Onset (ago): day(s) (4) Severity: severe Treatment prior to arrival: none COVID Results: SARS-CoV-2 Antigen (Rapid) Positive (Negative) H 04/17/21 10:35 04/17/21 SARS-CoV-2 RNA (RT-PCR) Not detected (NOT DETECTED) 09/16/20 17:02 09/16/20 Nasal/Oral Coronavirus 2019 PCR Negative 07/29/20 08:12 07/29/20 Review of Systems General: Reports: 10 or more systems reviewed and unremarkable except in HPI and below Const: Reports: chills and fatigue ENMT: Reports: nasal congestion Card: Denies: chest pain Resp: Reports: dyspnea GI: Reports: nausea and diarrhea; Denies: vomiting Neuro: Denies: confusion PFS ED PFSH: Medical History (Reviewed 04/19/21 @ 13:07 by Aga Olivares MD, [facility] [place]) Chronic cystitis History of biliary disease No pertinent past medical history neghx: htn,dm,thyroid,dvt/pe Recurrent UTI Sphincter of Oddi dysfunction Surgical History History of breast surgery bilateral saline implants History of delivery History of cholecystectomy History of ERCP (~2019) History of hysterectomy (~2009) ROMANA. Ovaries spared. Kilo Hx of section 2000 2005 2010 Family History Family/Other Diabetes Grandfather Stroke paternal Father Myocardial infarction Mother Thyroid disease Other Hypertension Denies family history of Colon cancer Ovarian cancer Clotting disorder Heart disease Hypercholesteremia Breast cancer Bleeding disorder Uterine cancer Social History (Reviewed 04/19/21 @ 13:07 by Aga Olivares MD, [facility] [place]) Smoking and tobacco status: never smoked Alcohol intake: never History of recent travel: No Physical Exam Const: COMMON NORMALS: no acute distress, average body habitus, patient oriented x3, no limitations, healthy appearing, alert and well nourished HENMT: COMMON NORMALS: normocephalic, atraumatic and moist oral mucous membranes HEAD & SCALP: normocephalic and atraumatic Neck/C-Spine: COMMON NORMALS: no meningeal signs and no JVD Resp: COMMON NORMALS: normal respiratory effort, No retractions, No use of accessory muscles, clear to auscultation bilaterally and percussion normal AUSCULTATION: clear to auscultation bilaterally PERCUSSION: percussion normal Cardio: COMMON NORMALS: no JVD, regular rate, regular rhythm, S1 normal heart sound present, S2 normal heart sound present, No gallops present (Cardio), No clicks present (Cardio), No murmurs present (Cardio), No rub (Cardio) and Peripheral pulses 2+ throughout RATE: regular rate RHYTHM: regular rhythm HEART SOUNDS: S1 normal heart sound present and S2 normal heart sound present PERIPHERAL PULSES: Peripheral pulses 2+ throughout GI: COMMON NORMALS: Normal to inspection, nondistended, normoactive bowel sounds present, Soft to palpation, non-tender, No hepatosplenomegaly present, no masses and no bruits PALPATION: Yes Soft to palpation and Yes No hepatosplenomegaly present Extremity: COMMON NORMALS: normal to inspection, full ROM, capillary refill normal, no calf tenderness and no pedal edema Neuro: COMMON NORMALS: patient oriented x3 SENSORIUM/ORIENTATION: Yes alert MENINGEAL SIGNS: Yes no meningeal signs Skin: COMMON NORMALS: no rashes or lesions noted, no wounds, turgor normal, no jaundice, no petechiae and no mottling GENERAL SKIN EXAM: no rashes or lesions noted and turgor normal Course Reevaluation(s): Reevaluation #1: Discussed her lab and imaging findings with her. Explained that she has significant pancytopenia which is worrisome. Even though she is not hypoxic I believe she will benefit from hospital admission. She voiced understanding and is in agreement with the plan. Time: 13:30 Consultations: Consultation #1: Discussed the patient with Dr. Vaughn, hospitalist and he kindly accepted the patient to his service. Time: 13:45 Vital Signs: Vital signs: Vital Signs Temperature 99.1 F 04/19/21 20:00 Pulse Rate 83 04/19/21 20:00 Respiratory Rate 16 04/19/21 20:00 Blood Pressure 117/74 04/19/21 20:00 Pulse Oximetry 100 04/19/21 20:00 MDM - COVID MDM Narrative: Medical decision making narrative: 35-year-old female patient who was recently diagnosed with COVID-19. She presented to the emergency department due to worsening of her symptoms including significant weakness, loss of taste and smell. She has only mild difficulty breathing. She was not hypoxic in the emergency department and not requiring oxygen. However evaluation shows she is pancytopenic which is new for her. This makes her high risk and she has moderate neutropenia also. She is therefore being admitted to the hospital for further evaluation and management and monitoring of her hematologic indices. Medical Records: Attestation: I reviewed the patient's medical records. Lab Data: Attestation: I reviewed the patient's lab results. Labs: Lab Results 04/19/21 04/19/21 04/19/21 Range/Units 12:30 12:30 12:30 WBC 1.6 L (4.0-10.0) 10^3/ uL RBC 4.57 (4.1-5.3) 10^6/u L Hgb 14.8 (11.5-15.3) g/dL Hct 44.7 (37.0-47.0) % MCV 97.8 (81-99) fL MCH 32.4 (28.0-34.0) pg MCHC 33.1 (30.0-36.0) g/dL RDW 11.9 L (12.1-15.1) % Plt Count 115 L (130-400) 10^3/c mm MPV 12.6 H (7.4-10.4) fL Neut % (Auto) 60.7 % Lymph % (Auto) 30.7 % [place] % (Auto) 8.6 % Eos % (Auto) 0.0 % Baso % (Auto) 0.0 % Neut # (Auto) 0.99 L (1.8-7.7) 10^3/u L Lymph # (Auto) 0.5 L (0.8-4.8) 10^3/u L [place] # (Auto) 0.1 L (0.2-0.9) 10^3/u L Eos # (Auto) 0.0 (0.0-0.8) 10^3/u L Baso # (Auto) 0.0 (0.0-0.1) 10^3/u L Nucleated RBC % (a uto) 0 % Nucleated RBCs # 0.0 /100WBC D-Dimer 0.33 (0-0.59) ug/mIFE U Sodium 139 (136-145) mmol/L Potassium 4.1 (3.5-5.1) mmol/L Chloride 104 (98-107) mmol/L Carbon Dioxide 25 (22-29) mmol/L Anion Gap 14.1 (5-19) BUN 8 (6-20) mg/dL Creatinine 0.7 (0.5-0.9) mg/dL GFR Calculation 94.2 (90-130) mL/min Glucose 92 (65-115) mg/dL Calculated Osmolal ity 286 (285-295) mOsm/k g Lactic Acid (0.5-2.2) mmol/L Calcium 8.4 L (8.5-10.5) mg/dL Ferritin 221 H (15-150) ng/mL Total Bilirubin 0.2 (0.15-1.2) mg/dL AST 22 (0-32) U/L ALT 22 (0-33) U/L Alkaline Phosphata se 55 (35-105) IU/L Creatine Kinase 63 (26-192) U/L C-Reactive Protein 1.4 (0.0-4.9) mg/L Total Protein 6.6 (6.6-8.7) g/dL Albumin 4.3 (3.5-5.2) g/dL Globulin 2.3 (1.3-4.6) g/dL 04/19/21 Range/Units 12:30 WBC (4.0-10.0) 10^3/ uL RBC (4.1-5.3) 10^6/u L Hgb (11.5-15.3) g/dL Hct (37.0-47.0) % MCV (81-99) fL MCH (28.0-34.0) pg MCHC (30.0-36.0) g/dL RDW (12.1-15.1) % Plt Count (130-400) 10^3/c mm MPV (7.4-10.4) fL Neut % (Auto) % Lymph % (Auto) % [place] % (Auto) % Eos % (Auto) % Baso % (Auto) % Neut # (Auto) (1.8-7.7) 10^3/u L Lymph # (Auto) (0.8-4.8) 10^3/u L [place] # (Auto) (0.2-0.9) 10^3/u L Eos # (Auto) (0.0-0.8) 10^3/u L Baso # (Auto) (0.0-0.1) 10^3/u L Nucleated RBC % (a uto) % Nucleated RBCs # /100WBC D-Dimer (0-0.59) ug/mIFE U Sodium (136-145) mmol/L Potassium (3.5-5.1) mmol/L Chloride (98-107) mmol/L Carbon Dioxide (22-29) mmol/L Anion Gap (5-19) BUN (6-20) mg/dL Creatinine (0.5-0.9) mg/dL GFR Calculation (90-130) mL/min Glucose (65-115) mg/dL Calculated Osmolal ity (285-295) mOsm/k g Lactic Acid 1.2 (0.5-2.2) mmol/L Calcium (8.5-10.5) mg/dL Ferritin (15-150) ng/mL Total Bilirubin (0.15-1.2) mg/dL AST (0-32) U/L ALT (0-33) U/L Alkaline Phosphata se (35-105) IU/L Creatine Kinase (26-192) U/L C-Reactive Protein (0.0-4.9) mg/L Total Protein (6.6-8.7) g/dL Albumin (3.5-5.2) g/dL Globulin (1.3-4.6) g/dL Imaging Data: CXR: Attestation: I personally reviewed and interpreted this imaging study as follows: Radiologist's impression: [address] [id number] ReportSigned Patient: Nicole Herrera #: [id number]: 1985Acct#:[id number]/Sex: 35 / FADM Date: 04/19/21Loc: ERRoom/Bed:Attending Dr: Ordering Provider/Ordering MD: Aga Olivares MD, [facility] [place] Date of Service: 04/19/21 Procedure(s): XR chest 1V portable [id number] Accession Number(s): [id number] Report Number: [id number] PROCEDURE INFORMATION: Exam: XR Chest Exam date and time: 04/19/2021 12:15 PM Age: 35 years old Clinical indication: Other: Weak; Additional info: Covid TECHNIQUE: Imaging protocol: XR of the chest. Views: 1 view. COMPARISON: CR Chest 2 views* [id number] 04/06/2015 8:24 PM FINDINGS: Lungs: Unremarkable. No consolidation. Pleural spaces: Unremarkable. No pleural effusion. No pneumothorax. Heart/Mediastinum: Unremarkable. No cardiomegaly. Bones/joints: Unremarkable. XR/XR chest 1V portable [id number] IMPRESSION: No acute findings. Dictated By:Jessica Abdullahi MDSigned By:Jessica Abdullahi MDSigned Date/Time:04/19/21 1402DD/ 1401 COVID Results: SARS-CoV-2 Antigen (Rapid) Positive (Negative) H 04/17/21 10:35 06/17/21 SARS-CoV-2 RNA (RT-PCR) Not detected (NOT DETECTED) 09/16/20 17:02 09/16/20 Nasal/Oral Coronavirus 2019 PCR Negative 07/29/20 08:12 07/29/20 Discharge Plan Discharge Patient Disposition: Admitted As Inpatient Admit Provider: Chano Vaughn Clinical Impression: Bicytopenia, COVID-19, Exocrine pancreatic insufficiency, Sphincter of Oddi dysfunction Condition: Stable Coding Level of Care Code ED Manager Financial Planning for Chg Fwd Exam Comprehensive
[2021-04-19 12:58] LABS: Hematocrit 44.7 % (37.0-47.0); Hemoglobin 14.8 g/dL (11.5-15.3); Lymphocytes # 0.5 10^3/uL (0.8-4.8); Lymphocytes % 30.7 %; Mean Corpuscular HGB Conc 33.1 g/dL (30.0-36.0); Mean Corpuscular Hemoglobin 32.4 pg (28.0-34.0); Mean Corpuscular Volume 97.8 fL (81-99); Mean Platelet Volume 12.6 fL (7.4-10.4); Monocytes # 0.1 10^3/uL (0.2-0.9); Monocytes % 8.6 %; Neutrophils % 60.7 %; Nucleated Red Blood Cells % 0 %; Platelet Count 115 10^3/cmm (130-400); Red Blood Count 4.57 10^6/uL (4.1-5.3); Red Cell Distribution Width 11.9 % (12.1-15.1); White Blood Count 1.6 10^3/uL (4.0-10.0)
[2021-04-19 13:06] LABS: Neutrophils # 0.99 10^3/uL (1.8-7.7)
[2021-04-19 13:15] LABS: D Dimer 0.33 ug/mIFEU (0-0.59)
[2021-04-19 13:23] LABS: Lactic Sepsis W/Reflex 1.2 mmol/L (0.5-2.2)
[2021-04-19 13:24] LABS: Alanine Aminotransferase 22 U/L (0-33); Albumin Level 4.3 g/dL (3.5-5.2); Alkaline Phosphatase 55 IU/L (35-105); Anion Gap 14.1 (5-19); Aspartate Amino Transferase 22 U/L (0-32); Blood Urea Nitrogen 8 mg/dL (6-20); C Reactive Protein 1.4 mg/L (0.0-4.9); Calcium 8.4 mg/dL (8.5-10.5); Carbon Dioxide 25 mmol/L (22-29); Chloride 104 mmol/L (98-107); Creatine Phosphokinase 63 U/L (26-192); Ferritin 221 ng/mL (15-150); Globulin 2.3 g/dL (1.3-4.6); Glomerular Filtration Rate 94.2 mL/min (90-130); Glucose 92 mg/dL (65-115); Osmolality Calculated 286 mOsm/kg (285-295); Potassium 4.1 mmol/L (3.5-5.1); Sodium 139 mmol/L (136-145); Total Bilirubin 0.2 mg/dL (0.15-1.2); Total Protein 6.6 g/dL (6.6-8.7)
--- NOTE | 2021-04-19 14:36 | PM.HP ---
Providers/Chief Complaint Admitting Physician: Chano Vaughn Primary Care Provider: Madison Ireland DO Chief Complaint: possitive covid, dizzy,ABD pain, sweating History of Present Illness 33 year old female with a past medical history of spincter of oddi dysfunction who was recently dx with covid -19 presented to ER with dizziness and generalized weakness. Presented to ER for eval. Upon arrival was noted to have ANC of 990, and thrombocytopenia. Was admitted for observation Review of Systems General: Reports: 10 or more systems reviewed and unremarkable except in HPI and below Medications/Allergies Home Medications Medication Instructions Recorded Confirmed Last Taken Type jtonkw-[id number]-[id number] 1 cap PO TID #270 cap 11/19/20 04/17/21 Unknown Rx 3,000-10,000-14,000 unit capsule,delayed rel dicyclomine 10 mg capsule 10 mg PO DAILY #90 cap 03/25/21 04/17/21 Unknown Rx Allergies Allergy/AdvReac Type Severity Reaction Status Date / Time latex Allergy Unknown Verified 04/17/21 10:25 Sulfa (Sulfonamide Allergy ALGY-Rash Verified 04/17/21 10:25 Antibiotics) Tetanus Vaccines and Toxoid Allergy ALGY-Fever Verified 04/17/21 10:25 PFSH Acute PFSH: Medical History Chronic cystitis History of biliary disease No pertinent past medical history neghx: htn,dm,thyroid,dvt/pe Recurrent UTI Sphincter of Oddi dysfunction Surgical History History of breast surgery bilateral saline implants History of delivery History of cholecystectomy History of ERCP (~2019) History of hysterectomy (~2009) ROMANA. Ovaries spared. Kilo Hx of section 2000 2004 2010 Family History Family/Other Diabetes Grandfather Stroke paternal Father Myocardial infarction Mother Thyroid disease Other Hypertension Denies family history of Colon cancer Ovarian cancer Clotting disorder Heart disease Hypercholesteremia Breast cancer Bleeding disorder Uterine cancer Social History Smoking and tobacco status: never smoked Alcohol intake: never History of recent travel: No Vitals/I&O/Wt Last Vital Signs Temp 99.1 F 04/19/21 20:00 Pulse 83 04/19/21 20:00 Resp 16 04/19/21 20:00 BP 117/74 04/19/21 20:00 Pulse Ox 100 04/19/21 20:00 04/19/21 04/19/21 04/20/21 14:59 22:59 06:59 Intake Total 1000 / 1000 Balance 1000 / 1000 Weight last 48 hrs Weight 61.689 kg Physical Exam Narrative: EXAM NARRATIVE: general awake alert heent eomi cvs rrr chest ctabl abd soft nt ext no edema Data : 04/19/21 12:30 04/19/21 12:30 A&P Assessment and plan (1) Bicytopenia: anc 990 infectious? repeat in am Status: Acute (2) COVID-19: no resp issues Status: Acute (3) Dizziness: Status: Acute Attestations Medical Necessity Statement*: will monitor overnight due to neutropenia Time Spent in Patient Care: Greater than 35 minutes (>than 50% of time spent in counselling and/or direct pt care on unit). Coding Level of Care Code Acute Direct Response Consultant for Mitchell Henry Diagnoses Bicytopenia D75.89 COVID-19 U07.1 Dizziness R42
[2021-04-19] MEDS: ondansetron 2 mg/ML SDV 2 mL 4 MG IVP (17:40)
[2021-04-19] MEDS: sodium chloride 0.9% 1,000 ML 50 ML IV (18:08)
--- NOTE | 2021-04-19 18:34 | PC.NURSE ---
1730 Pt admitted from ER. AAOx4. Makes all needs known. 18g PIV to L AC intact. SCDS applied. Telemetry applied. NS initiated per orders. Covid precautions. Denies any needs, oriented to room. CLWR, HOB elevated.
[2021-04-19] MEDS: enoxaparin 40 mg/0.4 mL Syringe SUBCUT (20:56)
[2021-04-20] VITALS (7 sets, daily range): BP systolic 96–117; BP diastolic 60–76; PULSE 64–88; RESP 15–18; TEMP 36.7–37.4; O2SAT 98–99; BMI 20.7
[2021-04-20] MEDS: acetaminophen 325 mg Tablet 650 MG PO ×3 (05:03→20:09)
[2021-04-20 06:10] LABS: Hematocrit 37.6 % (37.0-47.0); Hemoglobin 12.4 g/dL (11.5-15.3); Lymphocytes # 0.6 10^3/uL (0.8-4.8); Lymphocytes % 31.8 %; Mean Corpuscular Hemoglobin 32.3 pg (28.0-34.0); Mean Corpuscular Volume 97.9 fL (81-99); Mean Platelet Volume 12.6 fL (7.4-10.4); Monocytes # 0.2 10^3/uL (0.2-0.9); Monocytes % 8.5 %; Neutrophils # 1.19 10^3/uL (1.8-7.7); Neutrophils % 59.2 %; Nucleated Red Blood Cells % 0 %; Platelet Count 99 10^3/cmm (130-400); Red Blood Count 3.84 10^6/uL (4.1-5.3); Red Cell Distribution Width 11.8 % (12.1-15.1)
[2021-04-20 06:22] LABS: D Dimer <= 0.27 ug/mIFEU (0-0.59)
[2021-04-20 06:28] LABS: Alanine Aminotransferase 16 U/L (0-33); Albumin Level 3.4 g/dL (3.5-5.2); Alkaline Phosphatase 45 IU/L (35-105); Anion Gap 10.8 (5-19); Aspartate Amino Transferase 16 U/L (0-32); Blood Urea Nitrogen 6 mg/dL (6-20); C Reactive Protein 1.7 mg/L (0.0-4.9); Calcium 7.7 mg/dL (8.5-10.5); Carbon Dioxide 24 mmol/L (22-29); Chloride 108 mmol/L (98-107); Ferritin 213 ng/mL (15-150); Globulin 1.9 g/dL (1.3-4.6); Glomerular Filtration Rate 94.2 mL/min (90-130); Glucose 89 mg/dL (65-115); Magnesium 1.9 mg/dL (1.7-2.3); Osmolality Calculated 285 mOsm/kg (285-295); Potassium 3.8 mmol/L (3.5-5.1); Sodium 139 mmol/L (136-145); Total Bilirubin 0.2 mg/dL (0.15-1.2); Total Protein 5.3 g/dL (6.6-8.7)
[2021-04-20 06:33] LABS: Procalcitonin 0.02 ng/mL (0-0.5)
[2021-04-20] MEDS: pantoprazole DR 40 mg Tablet PO (10:00)
[2021-04-20] MEDS: sodium chloride 0.9% 1,000 ML 50 ML IV (15:29)
--- NOTE | 2021-04-20 17:15 | P.PN_ITS ---
Subjective Subjective: Interval history: Patient is still feeling dizzy however this has improved. continues to have nausea however this is a chronic issue. No fever, chills, nausea or vomiting. Medications: Reviewed: Yes Vitals/I&O/Wt Last Vital Signs Temp 98.3 F 04/20/21 15:53 Pulse 83 04/20/21 15:53 Resp 17 04/20/21 15:53 BP 96/60 04/20/21 15:53 Pulse Ox 99 04/20/21 15:53 04/20/21 04/20/21 04/20/21 06:59 14:59 22:59 Intake Total 1480.0 / 1480.0 Balance 1480.0 / 1480.0 Weight last 48 hrs Weight 61.689 kg Physical Exam Narrative: EXAM NARRATIVE: general awake alert heent eomi cvs rrr chest ctabl abd soft nt ext no edema Data : 04/20/21 05:51 04/20/21 05:51 A&P Assessment and plan (1) Bicytopenia: anc 990 - improving > 1100 infectious? due to covid Continue precautions Will repeat CBC in am D/w hematology in am If worsening again my need to consider biopsy in furture Plt count decreased to <100K. Bleeding precautions - Possibly related to hepatobiliary disease. Status: Acute (2) COVID-19: No resp issues No indication for decadron or remdesivir Status: Acute (3) Dizziness: Improving IVF Status: Acute Attestations Medical Necessity Statement*: Will require further hospitalization for managment of neuropenia Time Spent in Patient Care: Greater than 35 minutes (>than 50% of time spent in counselling and/or direct pt care on unit) . Coding Level of Care Code Acute Stamping Die Maker for Mitchell Henry Diagnoses Bicytopenia D75.89 COVID-19 U07.1 Dizziness R42
[2021-04-20] MEDS: enoxaparin 40 mg/0.4 mL Syringe SUBCUT (20:10)
[2021-04-21] VITALS: BP 96/62; PULSE 63; RESP 14; TEMP 37.1; O2SAT 100
[2021-04-21 04:00] VITALS: BP 89/59; PULSE 65; RESP 14; TEMP 36.7
[2021-04-21 06:39] LABS: Basophils % 0.6 %; Eosinophils % 0.6 %; Hematocrit 38.2 % (37.0-47.0); Hemoglobin 12.5 g/dL (11.5-15.3); Lymphocytes # 0.6 10^3/uL (0.8-4.8); Mean Corpuscular HGB Conc 32.7 g/dL (30.0-36.0); Mean Corpuscular Volume 97.7 fL (81-99); Mean Platelet Volume 12.7 fL (7.4-10.4); Monocytes # 0.2 10^3/uL (0.2-0.9); Monocytes % 11.6 %; Neutrophils % 50.2 %; Nucleated Red Blood Cells % 0 %; Platelet Count 96 10^3/cmm (130-400); Red Blood Count 3.91 10^6/uL (4.1-5.3); Red Cell Distribution Width 11.9 % (12.1-15.1); White Blood Count 1.7 10^3/uL (4.0-10.0)
[2021-04-21 06:41] LABS: Neutrophils # 0.87 10^3/uL (1.8-7.7)
[2021-04-21] MEDS: ondansetron 2 mg/ML SDV 2 mL 4 MG IVP ×2 (06:50→18:44)
[2021-04-21 06:51] LABS: D Dimer <= 0.27 ug/mIFEU (0-0.59)
[2021-04-21 06:58] LABS: Alanine Aminotransferase 16 U/L (0-33); Albumin Level 3.3 g/dL (3.5-5.2); Alkaline Phosphatase 51 IU/L (35-105); Aspartate Amino Transferase 19 U/L (0-32); Blood Urea Nitrogen 7 mg/dL (6-20); Calcium 7.8 mg/dL (8.5-10.5); Carbon Dioxide 25 mmol/L (22-29); Chloride 109 mmol/L (98-107); Globulin 2.1 g/dL (1.3-4.6); Glomerular Filtration Rate 94.2 mL/min (90-130); Glucose 90 mg/dL (65-115); Lactate Dehydrogenase 132 U/L (135-214); Osmolality Calculated 292 mOsm/kg (285-295); Sodium 142 mmol/L (136-145); Total Bilirubin 0.2 mg/dL (0.15-1.2); Total Protein 5.4 g/dL (6.6-8.7)
[2021-04-21 07:16] LABS: Ferritin 195 ng/mL (15-150)
[2021-04-21 07:33] VITALS: BP 108/72; PULSE 71; RESP 16; TEMP 37.3; O2SAT 100
[2021-04-21] MEDS: pantoprazole DR 40 mg Tablet PO (10:31)
[2021-04-21 11:12] VITALS: BP 112/74; PULSE 67; RESP 16; TEMP 37.2; O2SAT 100
--- NOTE | 2021-04-21 13:34 | P.PN_ITS ---
Subjective Subjective: Interval history: No new clinical events overnight. Denies any respiratory distress. This morning she did have a low-grade temp of 99.0. Medications: Reviewed: Yes Vitals/I&O/Wt Last Vital Signs Temp 99.0 F 04/21/21 11:12 Pulse 67 04/21/21 11:12 Resp 16 04/21/21 11:12 BP 112/74 04/21/21 11:12 Pulse Ox 100 04/21/21 11:12 04/20/21 04/21/21 04/21/21 22:59 06:59 14:59 Intake Total 360 / 1840.0 240 / 240 Balance 360 / 1840.0 240 / 240 Weight last 48 hrs Weight 61.689 kg Physical Exam Narrative: EXAM NARRATIVE: general awake alert heent eomi cvs rrr chest ctabl abd soft nt ext no edema Data : 04/21/21 06:08 04/21/21 06:08 A&P Assessment and plan (1) Bicytopenia: Neutropenia - Low grade fever today 99.0 - ANC decreased to 870 - D/w Hematology - advised to start Levaquin 500 mg daily - Repeat CBC in am - Will need to see a uptrend in ANC prior to discharge - Blood culture x 2 ordered Thrombocytopenia - Will hold lovenox - No bleeding - Repeat CBC in am - Possibly due to hepatobiliary/liver disease Status: Acute (2) COVID-19: No resp issues No indication for decadron or remdesivir Status: Acute (3) Dizziness: Improving Saline lock fluids Status: Acute Attestations Medical Necessity Statement*: Will require further hospitalization for managem ent of Neutropenia Time Spent in Patient Care: Greater than 35 minutes (>than 50% of time spent in counselling and/or direct pt care on unit) . Coding Level of Care Code Acute Timber Rider for Mitchell Henry Diagnoses Bicytopenia D75.89 COVID-19 U07.1 Dizziness R42
[2021-04-21] MEDS: sodium chloride 0.9% 1,000 ML 50 ML IV (15:06)
[2021-04-21] MEDS: levofloxacin-dextrose 5 % 500 MG/100 ML PREMIX 100 MG IV (15:07)
[2021-04-21 15:25] VITALS: BP 107/72; PULSE 72; RESP 16; TEMP 36.8; O2SAT 99
[2021-04-21] MEDS: acetaminophen 325 mg Tablet 650 MG PO (18:44)
[2021-04-21 20:00] VITALS: BP 110/71; PULSE 111; RESP 16; TEMP 37.5; O2SAT 96
[2021-04-22] VITALS: BP 92/58; PULSE 69; RESP 12; TEMP 36.7; O2SAT 99
[2021-04-22 04:00] VITALS: BP 91/58; PULSE 69; RESP 12; TEMP 37.1; O2SAT 99
[2021-04-22] MEDS: ondansetron 2 mg/ML SDV 2 mL 4 MG IVP (05:41)
[2021-04-22] MEDS: acetaminophen 325 mg Tablet 650 MG PO (05:50)
[2021-04-22 06:17] LABS: Hematocrit 38.3 % (37.0-47.0); Hemoglobin 12.6 g/dL (11.5-15.3); Lymphocytes # 0.6 10^3/uL (0.8-4.8); Lymphocytes % 28.1 %; Mean Corpuscular HGB Conc 32.9 g/dL (30.0-36.0); Mean Corpuscular Hemoglobin 31.6 pg (28.0-34.0); Mean Platelet Volume 12.4 fL (7.4-10.4); Monocytes # 0.2 10^3/uL (0.2-0.9); Monocytes % 8.2 %; Neutrophils # 1.24 10^3/uL (1.8-7.7); Neutrophils % 63.2 %; Nucleated Red Blood Cells % 0 %; Platelet Count 104 10^3/cmm (130-400); Red Blood Count 3.99 10^6/uL (4.1-5.3); Red Cell Distribution Width 11.7 % (12.1-15.1)
[2021-04-22 06:33] LABS: Alanine Aminotransferase 26 U/L (0-33); Albumin Level 3.7 g/dL (3.5-5.2); Alkaline Phosphatase 54 IU/L (35-105); Anion Gap 10.6 (5-19); Aspartate Amino Transferase 33 U/L (0-32); Blood Urea Nitrogen 7 mg/dL (6-20); Calcium 7.9 mg/dL (8.5-10.5); Carbon Dioxide 26 mmol/L (22-29); Chloride 108 mmol/L (98-107); Globulin 1.9 g/dL (1.3-4.6); Glomerular Filtration Rate 94.2 mL/min (90-130); Glucose 89 mg/dL (65-115); Osmolality Calculated 289 mOsm/kg (285-295); Potassium 3.6 mmol/L (3.5-5.1); Sodium 141 mmol/L (136-145); Total Bilirubin 0.3 mg/dL (0.15-1.2); Total Protein 5.6 g/dL (6.6-8.7)
[2021-04-22 07:48] VITALS: BP 95/54; PULSE 66; RESP 18; TEMP 37.2; O2SAT 100
[2021-04-22] MEDS: pantoprazole DR 40 mg Tablet PO (08:35)
[2021-04-22 11:49] VITALS: BP 95/54; PULSE 66; RESP 18; TEMP 37.2; O2SAT 100
--- NOTE | 2021-04-22 11:50 | PC.NURSE ---
IV removed at this time intact and patient tolerated well. Reviewed discharge with patient at this time. Patient verbalized understanding of discharge instructions including follow up appointments and medications. Patient is A&Ox3. Respirations even and non-labored on room air. Patient wheel chaired to private car.
--- NOTE | 2021-04-22 16:20 | P.DS_ITS ---
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 Patient at the time of my evaluation a denies any recent upper respiratory tract symptoms however it appears that she was seen at urgent careOn 04/17/2021 during which time she complained of body aches and fever of 101.7. Upon arrival to emergency room however she was not in any respiratory distress. Also afebrile. Laboratory workup showedWBC of 1.6, hemoglobin of 14.8, hematocrit of 44.7 platelet count of 115. Absolute neutrophil count was 0.99. Sodium 139, potassium 4.1, chloride 104, bicarb 25, BUN 8 and creatinine of 0.7. D-dimer 0.33. Procalcitonin of 0.02.Chest x-ray did not show any evidence of acute cardiopulmonary abnormality. Patient is admitted to the hospital due to neutropenia and thrombocytopenia. Throughout the course of hospitalization levels fluctuated. She did not have any fever episodes. Case was discussed with Oncology would recommended patient remained hospitalized until uptrend of neutrophil count. Additionally impaired this started on Levaquin 500 mg daily. Patients neutrophil count sed increased [id number]. She did not develop any new symptoms throughout course of the hospitalization. Patient was discharged with outpatient follow-up with oncology and repeat CBC advised to return to hospital if any recurrence fever or new symptoms. Patient verbalized understanding. Physical Exam Narrative: EXAM NARRATIVE: general awake alert heent eomi cvs rrr chest ctabl abd soft nt ext no edema Discharge Data Data Completed and Pending: Completed Studies During Hospitalization Category Date Time Status XR chest 1V maria r ble [id number] Stat Exams 04/19/21 12:15 Completed Pending at discharge Category Date Time Status Blood Culture Sta t Lab 04/21/21 14:13 Results Vitals: Last Vital Signs Temp 99.0 F 04/22/21 11:49 Pulse 66 04/22/21 11:49 Resp 18 04/22/21 11:49 BP 95/54 04/22/21 11:49 Pulse Ox 100 04/22/21 11:49 Discharge Plan Discharge Patient Disposition: Home Condition: Stable Prescriptions: New levofloxacin 500 mg tablet 500 mg PO DAILY 5 Days RF: 0 Continued Zenpep 3,000-10,000 -14,000-unit capsule,delayed release(DR/EC) 1 cap PO TID Qty: 270 RF: 3 dicyclomine 10 mg capsule 10 mg PO DAILY Qty: 90 RF: 3 Tylenol Extra Strength 500 mg Tablet 1,000 mg PO PRN RF: 0 Discontinued ibuprofen 200 mg Tablet 800 mg PO PRN RF: 0 No Action Zofran 4 mg tablet 4 mg PO Q8H PRN (Reason: Nausea And Vomiting) Qty: 20 RF: 0 prednisone 20 mg tablet 20 mg PO DAILY Qty: 7 RF: 0 Discharge Orders: Discharge Order (Routine); Ordered 04/22/21 Ordered By: Chano Vaughn Referrals: Madison Ireland DO [Primary Care Provider] - 04/29/21 11:15 am Claudia Can MD [Staff Physician] - 1 week (To repeat CBC ) Discharge Diet: Usual diet Discharge Activity: Increase activity as tolerated Patient Instructions: Levofloxacin (By mouth), Opioid Safety Activity Restrictions/Additional Instructions: Return to ER if any recurrance of fever,or new symptoms Discharge Attestations Time Spent in Discharge Care*: greater than 30 min Specific Discharge Activities: educating patient, educating and/or supporting family/caregiver, discussing with pcp/other providers, discussing with disability case manager/social workers/dc planners, documenting/other paperwork and evaluating patient/reviewing data Status at Discharge: Cognitive status at discharge: cognitively intact , Behavioral status at discharge: cooperative , Functional status at discharge: independent ambulation Overall status at discharge: patient is back to baseline Quality Metrics Clinical Quality Measures During this hospital stay, did patient experience: None Coding Level of Care Code Acute Chg FW DC note Diagnoses Bicytopenia D75.89 COVID-19 U07.1 Dizziness R42
== END 2021-04-22 11:50 | disposition home or self-care (01) ==
LOC: ER 13:29 → MEDSURG 23:52
PROVIDERS: Admitting Provider Hospitalist; Emergency Provider Family Medicine; PCP Family Medicine; Visit Provider Hospitalist
DX: D75.89 Other specified diseases of blood and blood-forming organs (principal); U07.1 COVID-19; R42 Dizziness and giddiness
CPT/HCPCS: 36415; 71045; 80053; 82550; 82728; 83605; 83615; 83735; 84145; 85025; 85378; 86140; 87040; 96361; 96365; 96372; 96375; 96376; 99285; G0378; J1650; J1956; J2405; J7030

== ENCOUNTER 2021-04-29 15:00 | Outpatient (CLI) | payer OTHER, SELFPAY | END 2021-04-29 15:01 | disposition home or self-care (01) | LOC: RAD 03-18 08:54 | PROVIDERS: PCP Internal Medicine; Visit Provider Nurse Practitioner Family | DX: D75.89 Other specified diseases of blood and blood-forming organs (principal) | CPT/HCPCS: 85025 ==

== ENCOUNTER 2021-04-30 14:00 | Outpatient (CLI) | payer OTHER, SELFPAY ==
--- NOTE | 2021-05-01 09:24 | ONC CON_ITS ---
Dr. Allison New Patient Note Patient: Nicole Herrera Unit #: [id number]: [id number] Dicatated By: Mayur Allison M.D.Date of Visit: Apr 30, 2021 Onc MED New Patient/Consult Referring Physician: [facility] Chief Complaint: Neutropenia and thrombocytopenia. History of Present Illness: This is a 35-year-old woman with neutropenia and thrombocytopenia in association with COVID-19 virus infection. She has been in good general health. On 04/17/2021 she was confirmed to have COVID-19 virus infection on a SARS-CoV-2 Ag (rapid) test. Her presenting complaints included fatigue, fever, shortness of breath, nausea, headache, and dizziness. On 04/19/2020 when she presented to the emergency room with worsening symptoms. Her CBC at that time showed normal hemoglobin at 14.8 g but with low white blood cell count at 1600 with absolute lymphocyte count low at 500 and absolute neutrophil count low at approximately 1000. Her platelet count was mildly decreased at 115,000. Chest x-ray showed no acute findings. Due to the low blood counts, she was admitted for observation and supportive care measures. With hydration there was a little drop in her hemoglobin/hematocrit levels, but her other blood counts basically remained stable. As of discharge on 04/22/2021 her hemoglobin remained adequate at 12.6 g with white blood cell count 2000 and platelet count 104,000. The absolute neutrophil count was 1200 and the absolute lymphocyte count was 600. At this point her energy is still low but she is able to do light work. She does have to push herself. ECOG score is 1. Her appetite is improving now. She has had no fever since discharge from the hospital. She has had some sweating. She continues to have some sinus drainage and sore throat and she also still has some chest congestion/cough and shortness of breath. She did have 5 days of steroid therapy, and her symptoms are improving. Her nausea is better now. She was having diarrhea, but that has resolved. She has no complaints. She has some aching in her joints. She still has some headache and dizziness. She was having pretty bad numbness in her hands and legs, that is bothering her now just occasionally. Past Medical History: Her medical history includes chronic cystitis, gastroesophageal reflux disease, and sphincter of Oddi dysfunction. Past Surgical History: Her surgical/procedural history includes bilateral saline breast implants, section x 3, EGD in 2011, 2014, and 2018, ERCP with biliary stent placement x 2, colonoscopy in 2019, laparoscopic assisted vaginal hysterectomy in 2010, and cholecystectomy in 2010. Medications: Dicyclomine HCl 1 (10 mg/mL) Intramuscular daily, Folic Acid 1 (1 mg) Tablet Oral daily, Vitamin B-12 1 Tablet Dispersable Oral daily, Zenpep 1 (3000-20385 Units) Capsule Delayed Release Particles Oral t.i.d. Allergies: Latex, Sulfa Antibiotics, and Tetanus-Diphtheria Toxoids Td. Social History: Ms. Herrera is . She is a non-smoker. She has just occasional alcohol use. Family History: Both parents are still living. Father has alcoholism. Mother is in good health. One brother is in good health. Her paternal grandfather had some type of GI cancer and a paternal great aunt had lung cancer. Great-grandmother on her mother side had blood cancer . Review Of Symptoms: Constitutional - Her energy is low when she has limited activity, which she is able to do some work. She has to push herself. Appetite is improving now. She has not had any more fever, but she does have sweating. ECOG score is 1, Eyes - She has had some decline in vision, ENMT - She has sinus congestion and sore throat. No difficulty swallowing, Hematologic/Lymphatic - No abnormal bruising or bleeding, Respiratory - She still has chest congestion, cough, and shortness of breath. No pleuritic pain or hemoptysis, Cardiovascular - No angina pain. No palpitations, Gastrointestinal - Her nausea is getting better. No heartburn or acid reflux. She has had some abdominal pain. She was having diarrhea. She is now having intermittent constipation. No blood in the stool or black stools, Genitourinary (F) - No dysuria or hematuria. No urinary frequency. No urgency or incontinence, Musculoskeletal - She has some aching in her joints, Integumentary - No skin rash or other skin changes, Neurologic - She has had headache and dizziness. She was having pretty bad numbness in her hands and in her legs, but it is now just occasional, Psychiatric - No anxiety or depression. No insomnia. Vital Signs: Performed on Apr 30, 2021 14:51: 7, 4, 20.77, 1.74 sq.m, 68 in, 100 %, 83 /min, 18 /min, 123/82 mm(hg), 98.1 F (LOW), and 136.6 lbs (HIGH). Physical Examination: Constitutional - She appears to be in good general health. She does not appear acutely ill, Eyes - Sclerae nonicteric. Conjunctivae clear, ENMT - No lesions noted in the oral cavity, Neck - No mass or thyromegaly, Hematologic/Lymphatic - No cervical, clavicular, or axillary adenopathy, Respiratory - Lungs are clear with good air movement bilaterally, Cardiovascular - Heart rhythm is regular. There is no murmur, gallop, or rub noted, Abdomen - Soft. There is mild tenderness in the epigastric area. Liver and spleen are not enlarged. There is no abdominal mass or ascites noted and there is no inguinal adenopathy, Back/Spine - No spine or CVA tenderness noted, Extremities - No edema. There is no calf swelling or tenderness. There are no petechiae or ecchymosis noted, Integumentary - No rashes. No suspicious skin lesions noted, Neurologic - No focal neurologic deficits noted. Problem List: 1. Moderately severe neutropenia and mild thrombocytopenia occurring association with COVID-19 virus infection. 2. Chronic cystitis. 3. Sphincter of Oddi dysfunction. 4. She has had evidence of GERD on previous EGD procedures. Problems Addressed with this Encounter and Plan: Patient with moderately severe neutropenia and mild thrombocytopenia occurring in association with COVID-19 virus infection. While these are not typical findings with the COVID-19 virus, the bicytopenia is clearly viral-related, as her CBC from yesterday is pretty much back to normal. As she is also showing improvement clinically, there is no indication for any additional evaluation. She will continue her regular follow-up with Dr. Ireland. I will plan to see her again only as needed. Signed By: Mayur Allison M.D. <<Signature on File>>
== END 2021-04-30 14:01 | disposition home or self-care (01) ==
LOC: ONCMED 05-01 07:21
PROVIDERS: PCP Family Medicine; Visit Provider Internal Medicine Medical Oncology
DX: D70.9 Neutropenia, unspecified (principal); D69.6 Thrombocytopenia, unspecified; Z86.16 Personal history of COVID-19; N30.20 Other chronic cystitis without hematuria; K83.4 Spasm of sphincter of Oddi
CPT/HCPCS: 99203

== ENCOUNTER 2021-05-01 10:05 | Emergency (ER) | payer MEDICAID, SELFPAY ==
[2021-05-01 10:11] VITALS: BP 99/68; PULSE 101; RESP 31; TEMP 36.5; O2SAT 100; BMI 20.2
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
--- NOTE | 2021-05-01 10:16 | CT_ITS ---
WS: [id number] CT THORACIC SPINE TECHNIQUE: Noncontrast CT of the thoracic spine with coronal and sagittal reformatted images. CLINICAL INFORMATION: pain COMPARISON: None. DLP: 968.[address] scans at [facility] use at least one of these dose optimization techniques: automat ed exposure control; mA and/or kV adjustment per patient size (includes targeted exams where dose is matched to clinical indication); or iterative reconstruction. FINDINGS: Mild thoracic curve convex right. Mild thoracic kyphosis. No acute compression fractures. A few Schmo rl's nodes in the mid thoracic spine. Minimal chronic anterior wedging in the mid thoracic spine. Spi nal canal is patent. No significant central canal stenosis. A few small disc protrusions in the mid a nd lower thoracic spine more prominent at T8-9, T9-10, and T10-11. Mild central canal stenosis at T9- T10. Slight patchy infiltrates or atelectasis in the lung bases. Partially visualized. CT/CT thoracic spin wo con* [id number] IMPRESSION: 1. No acute thoracic spine fractures. 2. Small disc protrusions mid thoracic spine more prominent at T8-T9, T9-T10, T10-11 with mild central canal stenosis. 3. Patchy infiltrates or atelectasis in the lung bases posteriorly partially v isualized
--- NOTE | 2021-05-01 10:16 | CT_ITS ---
WS: [id number] CT CERVICAL TRAUMA TECHNIQUE: Noncontrast CT of the cervical spine with coronal and sagittal reformatted images. CLINICAL INFORMATION: pain COMPARISON: 6 DLP: 339.[address] scans at [facility] use at least one of these dose optimization techniques: automat ed exposure control; mA and/or kV adjustment per patient size (includes targeted exams where dose is matched to clinical indication); or iterative reconstruction. FINDINGS: Straightening of the normal cervical lordosis. Normal craniocervical junction. Normal C1-C2 articulat ion. Dens is normal in appearance. Normal occipital condyles. No high-grade spinal canal narrowing. N ormal C1 ring. No evidence of acute fracture or dislocation. Normal prevertebral soft tissues. Mastoids air cells are well aerated. CT/CT cervical spin wo con* [id number] IMPRESSION: No evidence of acute fracture or dislocation.
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
--- NOTE | 2021-05-01 10:16 | CT_ITS ---
WS: [id number] CT LUMBAR SPINE TECHNIQUE: Noncontrast CT of the lumbar spine with coronal and sagittal reformatted images. CLINICAL INFORMATION: pain COMPARISON: None. DLP: 1111.[address] scans at [facility] use at least one of these dose optimization techniques: automat ed exposure control; mA and/or kV adjustment per patient size (includes targeted exams where dose is matched to clinical indication); or iterative reconstruction. FINDINGS: Mild lumbar curve. No acute compression. No high-grade central canal stenosis. Normal transverse proc esses. No acute fractures. L1-L2: Normal. L2-L3: Normal. L3-L4: Small central disc protrusion. Mild central canal stenosis. Narrowing of the subarticular rece ss. Foramen are patent. L4-L5: Small central disc protrusion. Mild central canal stenosis with impingement on the traversing L5 nerve roots. Foramen are patent. Mild facet arthropathy. L5-S1: Mild disc bulging with a small central disc protrusion. Mild central canal stenosis with impin gement on the traversing S1 nerve roots. Mild left foraminal narrowing. Mild facet arthropathy. Adrenal glands are normal. Cholecystectomy clips. CT/CT lumbar spine wo con* [id number] IMPRESSION: 1. No acute compression fractures. No acute lumbar fractures. 2. Small disc protrusions L3-L5 with mild central canal stenosis at these leve ls. 3. No other acute traumatic findings.
--- NOTE | 2021-05-01 10:16 | XR_ITS ---
WS: [id number] Right leg including the tibia and fibula, AP and lateral views, 05/01/2021 Clinical Data: pain Comparison: None. Findings: No fractures or dislocations are seen. The tibia and fibula are intact. The soft tissues are normal. There is a 2 cm area of decreased density in the medial subcutaneous tissue in the midportion of the right leg. This could be a small fat collection. XR/XR tibia fibula RT 2V [id number] Impression: Negative right leg.
--- NOTE | 2021-05-01 10:16 | ECG_ITS ---
[facility] Test Date: 2021-05-01 Pat Name: Nicole Herrera Department: Room: Gender: Female [employer]: : 1985 Requested By: Jagjit Delaney Order Number: [id number] Leydi MD: Shad Becerra M.D. Measurements Intervals [place] Rate: 93 P: 51 PA: 114 QRS: 71 QRSD: 82 T: 67 QT: 370 QTc: 461 Interpretive Statements SINUS RHYTHM WITH SHORT PA INTERVAL NONSPECIFIC T-WAVE ABNORMALITY Compared to ECG 04/06/2015 19:40:40 Short PA interval now present T-wave abnormality now present Electronically Signed On 05-01-2021 20:29:46 CDT by Shad Becerra M.D. [id number]
--- NOTE | 2021-05-01 10:16 | XR_ITS ---
WS: [id number] Portable AP supine chest, 05/01/2021 Clinical Data: pain Comparison: Portable chest, 04/19/2021. Findings: No nodules, masses or effusions are seen. The heart is normal. The pulmonary vascularity is not increased. No pneumonia or pneumothorax is seen. Monitor leads are on the chest wall. XR/XR chest 1V portable [id number] Impression: Negative chest.
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
[2021-05-01 10:42] VITALS: RESP 21
[2021-05-01] MEDS: ondansetron 2 mg/ML SDV 2 mL 4 MG IVP (10:42)
[2021-05-01] MEDS: HYDROmorphone 1 mg/mL INJ 1 mL 0.5 MG IVP (10:42)
[2021-05-01] MEDS: ceFAZolin 1,000 MG in sodium chloride 0.9% (plus) 50 ML 100 MG IV (10:43)
[2021-05-01 10:51] LABS: Basophils % 0.1 %; Eosinophils % 0.3 %; Hematocrit 39.8 % (37.0-47.0); Hemoglobin 12.8 g/dL (11.5-15.3); Lymphocytes # 1.4 10^3/uL (0.8-4.8); Lymphocytes % 20.2 %; Mean Corpuscular HGB Conc 32.2 g/dL (30.0-36.0); Mean Corpuscular Hemoglobin 32.1 pg (28.0-34.0); Mean Corpuscular Volume 99.7 fL (81-99); Mean Platelet Volume 11.5 fL (7.4-10.4); Monocytes # 0.3 10^3/uL (0.2-0.9); Monocytes % 3.7 %; Neutrophils # 5.07 10^3/uL (1.8-7.7); Nucleated Red Blood Cells % 0 %; Platelet Count 293 10^3/cmm (130-400); Red Blood Count 3.99 10^6/uL (4.1-5.3); Red Cell Distribution Width 11.6 % (12.1-15.1); White Blood Count 6.8 10^3/uL (4.0-10.0)
[2021-05-01] MEDS: iohexol 300 mg/mL 100 mL Btl IV (11:04)
[2021-05-01 11:08] LABS: Alanine Aminotransferase 348 U/L (0-33); Alkaline Phosphatase 62 IU/L (35-105); Anion Gap 16.2 (5-19); Aspartate Amino Transferase 495 U/L (0-32); Blood Urea Nitrogen 11 mg/dL (6-20); Calcium 8.7 mg/dL (8.5-10.5); Carbon Dioxide 23 mmol/L (22-29); Chloride 104 mmol/L (98-107); Globulin 2.3 g/dL (1.3-4.6); Glomerular Filtration Rate 112.5 mL/min (90-130); Glucose 114 mg/dL (65-115); Lipase 44 U/L (13-60); Osmolality Calculated 290 mOsm/kg (285-295); Potassium 3.2 mmol/L (3.5-5.1); Sodium 140 mmol/L (136-145); Total Bilirubin 0.9 mg/dL (0.15-1.2); Total Protein 6.3 g/dL (6.6-8.7)
[2021-05-01 11:40] LABS: Blood Urine 3+ (Negative); Glucose Urine UA Trace (Normal); Ketones Urine 1+ (Negative); Nitrate Urine Negative (Negative); Protein Urine 1+ (Negative); Urine Appearance SL Hazy (CLEAR); Urine Color Yellow (Yellow); pH Urine 7 (5-7)
[2021-05-01 11:41] LABS: Add Urine Microscopic? YES; Bilirubin Urine Neg (Negative); Leukocyte Esterase Urine Negative (Negative); Urobilinogen Urine Norm (Negative)
[2021-05-01 11:47] LABS: Add Urine Culture? No; Bacteria Urine 1+ /hpf; Mucus Urine 1+ /hpf; RBC Urine 15-25 /hpf (0-2); WBC Urine 0-4 /hpf (0-5)
[2021-05-01 12:12] VITALS: BP 120/67; PULSE 85; RESP 26; O2SAT 100
--- NOTE | 2021-05-01 12:13 | PC.NURSE ---
report called to COURTNEY Resendiz at [facility].
--- NOTE | 2021-05-01 12:31 | PC.NURSE ---
dressed wound to right leg with bacitracin, 4*4, and covaderm.
== END 2021-05-01 12:32 | disposition short-term general hospital (02) ==
PROVIDERS: Emergency Provider Family Medicine; PCP Family Medicine
DX: S36.116A Major laceration of liver, initial encounter (principal); S81.811A Laceration without foreign body, right lower leg, initial encounter; S27.322A Contusion of lung, bilateral, initial encounter; S16.1XXA Strain of muscle, fascia and tendon at neck level, initial encounter; V89.2XXA Person injured in unspecified motor-vehicle accident, traffic, initial encounter
CPT/HCPCS: 12002; 70450; 71045; 71260; 72125; 72128; 72131; 72170; 73590; 74177; 80053; 81001; 83690; 85025; 86850; 86900; 93005; 96365; 96375; 99285; J0690; J1170; J2405; Q9967

== ENCOUNTER 2021-05-06 11:39 | Outpatient (CLI) | payer MEDICAID, SELFPAY ==
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
== END 2021-05-06 11:40 | disposition home or self-care (01) ==
LOC: RAD 11:42
PROVIDERS: PCP Internal Medicine; Visit Provider Nurse Practitioner Family
DX: S36.116A Major laceration of liver, initial encounter (principal); X58.XXXA Exposure to other specified factors, initial encounter
CPT/HCPCS: 74022; 80053

== ENCOUNTER 2021-05-12 13:23 | Outpatient (CLI) | payer OTHER, MEDICAID, SELFPAY ==
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
== END 2021-05-12 13:24 | disposition home or self-care (01) ==
LOC: RAD 13:30
PROVIDERS: PCP Internal Medicine; Visit Provider Internal Medicine
DX: M79.605 Pain in left leg (principal)
CPT/HCPCS: 73551; 73590

== ENCOUNTER → 2021-06-04 15:38 | Outpatient (BNVA) | payer BC, MEDICAID, SELFPAY | PROVIDERS: PCP Internal Medicine; Visit Provider Internal Medicine | DX: S36.113A Laceration of liver, unspecified degree, initial encounter (principal); K86.81 Exocrine pancreatic insufficiency; K83.4 Spasm of sphincter of Oddi; X58.XXXA Exposure to other specified factors, initial encounter | CPT/HCPCS: 80053 ==

== ENCOUNTER → 2021-08-06 15:18 | Outpatient (BNVA) | payer BC, MEDICAID, SELFPAY | PROVIDERS: PCP Internal Medicine; Visit Provider Nurse Practitioner Family | DX: R10.9 Unspecified abdominal pain (principal); S36.113A Laceration of liver, unspecified degree, initial encounter; N30.20 Other chronic cystitis without hematuria | CPT/HCPCS: 80053; 81000 ==

== ENCOUNTER → 2021-09-09 00:01 | Outpatient (BNVA) | payer BC, MEDICAID, SELFPAY | PROVIDERS: PCP Internal Medicine; Visit Provider Nurse Practitioner Family | DX: R53.83 Other fatigue (principal) | CPT/HCPCS: 84443 ==

== ENCOUNTER 2021-11-11 06:45 | Outpatient (CLI) | payer MEDICAID, SELFPAY ==
--- NOTE | 2021-11-11 07:15 | US_ITS ---
WS: [id number] ULTRASOUND THYROID TECHNIQUE: Ultrasound of the thyroid. CLINICAL INFORMATION: Enlarged Thyroid COMPARISON: None. FINDINGS: Thyroid: Right and left thyroid lobes are normal in size and echotexture. No thyroid nodules are pres ent. Right thyroid lobe: 4.8 cm x 1.4 cm x 1.5 cm Left thyroid lobe: 4.5 cm x 1.5 cm x 1.2 cm. Isthmus: 0.2 mm. Cervical lymphadenopathy: None. US/US thyroid [id number] IMPRESSION: Normal thyroid ultrasound examination.
== END 2021-11-11 06:46 | disposition home or self-care (01) ==
LOC: RAD 06:45
PROVIDERS: PCP Internal Medicine; Visit Provider Nurse Practitioner Family
DX: E01.0 Iodine-deficiency related diffuse (endemic) goiter (principal)
CPT/HCPCS: 76536

== ENCOUNTER 2021-11-18 13:28 | Outpatient (CLI) | payer MEDICAID, SELFPAY ==
--- NOTE | 2021-11-18 13:38 | FL_ITS ---
WS: [id number] Exam: FL barium swallow [id number] Date/Time of Exam: 11/18/2021 1:51 PM Reason For Exam: DYSPHAGIA Fluoroscopy time: 1.3 minutes Swallowing function at the level of the oropharynx was normal. The esophagus is smooth in contour wit h normal motility. No sign of esophageal mass or stricture. No hiatal hernia. No gastroesophageal ref lux was noted. The esophagus is not displaced. FL/FL barium swallow [id number] IMPRESSION: 1. Normal esophagram.
== END 2021-11-18 13:29 | disposition home or self-care (01) ==
LOC: RAD 13:33
PROVIDERS: PCP Internal Medicine; Visit Provider Specialist
DX: R13.10 Dysphagia, unspecified (principal); R10.11 Right upper quadrant pain
CPT/HCPCS: 74220; 80053; 82150; 83690

== ENCOUNTER → 2021-12-03 10:35 | Outpatient (BNVA) | payer MEDICAID, SELFPAY | PROVIDERS: PCP Internal Medicine; Visit Provider Nurse Practitioner | DX: M25.532 Pain in left wrist (principal) | CPT/HCPCS: 73110 ==

== ENCOUNTER → 2022-03-18 10:56 | Outpatient (BNVA) | payer MEDICAID, SELFPAY | PROVIDERS: PCP Internal Medicine; Visit Provider Internal Medicine | DX: K86.81 Exocrine pancreatic insufficiency (principal); R30.0 Dysuria; R19.8 Other specified symptoms and signs involving the digestive system and abdomen; K83.4 Spasm of sphincter of Oddi | CPT/HCPCS: 80053; 81000; 83036; 83525; 84443; 84681; 85025 ==

== ENCOUNTER 2022-06-15 15:14 | Outpatient (CLI) | payer MEDICAID, SELFPAY ==
[2022-06-25 00:48] LABS: Factor 5 Leiden Mutation NEGATIVE
== END 2022-06-15 15:15 | disposition home or self-care (01) ==
PROVIDERS: PCP Internal Medicine; Visit Provider Internal Medicine
DX: Z83.2 Family history of diseases of the blood and blood-forming organs and certain disorders involving the immune mechanism (principal)
CPT/HCPCS: 36415; 81241

== ENCOUNTER 2022-08-07 07:31 | Emergency (ER) | payer OTHER, MEDICAID, SELFPAY ==
[2022-08-07 07:53] VITALS: BP 123/78; PULSE 72; RESP 14; TEMP 36.7; O2SAT 100; BMI 21.2
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
[2022-08-07] MEDS: sodium chloride 0.9% 1,000 ML 999 ML IV (08:29)
[2022-08-07] MEDS: ketorolac 30 mg/mL INJ IVP (08:29)
[2022-08-07] MEDS: promethazine 25 mg/mL SDV 1 mL IM (08:29)
[2022-08-07 08:33] LABS: Basophils % 0.2 %; Eosinophils % 0.7 %; Hematocrit 43.8 % (37.0-47.0); Hemoglobin 14.7 g/dL (11.5-15.3); Lymphocytes # 0.8 10^3/uL (0.8-4.8); Lymphocytes % 20.6 %; Mean Corpuscular HGB Conc 33.6 g/dL (30.0-36.0); Mean Corpuscular Volume 98.4 fl (81-99); Mean Platelet Volume 11.1 fL (7.4-10.4); Monocytes # 0.3 10^3/uL (0.2-0.9); Monocytes % 6.9 %; Neutrophils # 2.87 10^3/uL (1.8-7.7); Neutrophils % 71.4 %; Nucleated Red Blood Cells % 0 %; Platelet Count 276 10^3/cmm (130-400); Red Blood Count 4.45 10^6/uL (4.1-5.3); Red Cell Distribution Width 11.8 % (12.1-15.1)
[2022-08-07 08:36] VITALS: BP 113/75; PULSE 68; O2SAT 100
[2022-08-07 08:53] LABS: Alanine Aminotransferase 72 U/L (0-33); Albumin Level 5.1 g/dL (3.5-5.2); Alkaline Phosphatase 88 U/L (35-105); Anion Gap 16.8 (5-19); Aspartate Amino Transferase 38 U/L (0-32); Blood Urea Nitrogen 12 mg/dL (6-20); Calcium 9.7 mg/dL (8.5-10.5); Carbon Dioxide 27 mmol/L (22-29); Chloride 102 mmol/L (98-107); Globulin 2.8 g/dL (1.3-4.6); Glomerular Filtration Rate 93.6 mL/min (90-130); Glucose 82 mg/dL (65-115); Lipase 34 U/L (13-60); Osmolality Calculated 293 mOsm/kg (285-295); Potassium 3.8 mmol/L (3.5-5.1); Sodium 142 mmol/L (136-145); Total Bilirubin 0.8 mg/dL (0.15-1.2); Total Protein 7.9 g/dL (6.6-8.7)
[2022-08-07 08:56] LABS: Add Urine Microscopic? NO; Charge for UA Resulting for Rev
[2022-08-07 09:03] LABS: Urine Appearance Clear (CLEAR); Urine Color Yellow (Yellow)
[2022-08-07 09:04] LABS: Bilirubin Urine Neg (Negative); Blood Urine Neg (Negative); Glucose Urine UA Norm (Normal); Ketones Urine Negative (Negative); Leukocyte Esterase Urine Negative (Negative); Nitrate Urine Negative (Negative); Protein Urine Neg (Negative); Sulfosalicylic Acid Urine Negative (Negative); Urobilinogen Urine Neg (Negative); pH Urine 8 (5-7)
[2022-08-07] MEDS: diphenhydrAMINE 50 mg/mL SDV 1mL IVP (09:07)
[2022-08-07 10:00] VITALS: BP 111/87; PULSE 80; O2SAT 100
[2022-08-07 11:38] VITALS: PULSE 61; O2SAT 98
== END 2022-08-07 11:40 | disposition home or self-care (01) ==
PROVIDERS: Emergency Provider Family Medicine; PCP Internal Medicine
DX: G44.209 Tension-type headache, unspecified, not intractable (principal)
CPT/HCPCS: 80053; 81003; 83690; 85025; 96372; 96374; 96375; 99284; J1200; J1885; J2550; J7030

== ENCOUNTER 2022-12-03 15:56 | Outpatient (CLI) | payer OTHER, SELFPAY ==
--- NOTE | 2022-12-03 16:46 | XR_ITS ---
WS: [id number] KUB, AP view, 12/03/2022 Clinical Data: PRESENCE OF OTHER SPECIFIED IMPLANT Comparison: Acute abdomen series, 05/06/2021 Findings: No abnormal intraabdominal masses or calcifications are seen. There is no dilatated small bowel or ev idence of obstruction. There is fecal material throughout the colon. There are clips in the right upper quadrant from a chol ecystectomy. XR/XR KUB [id number] Impression: Negative KUB.
== END 2022-12-03 15:57 | disposition home or self-care (01) ==
PROVIDERS: PCP Internal Medicine; Visit Provider Internal Medicine Gastroenterology
DX: Z96.89 Presence of other specified functional implants (principal)
CPT/HCPCS: 74018

== ENCOUNTER → 2023-03-31 08:08 | Outpatient (BNVA) | payer OTHER, MEDICAID, SELFPAY | PROVIDERS: PCP Internal Medicine; Referring Provider Dermatology; Visit Provider Orthopaedic Surgery | DX: M25.562 Pain in left knee (principal) | CPT/HCPCS: 73560; 73565 ==

== ENCOUNTER → 2023-07-09 12:48 | Outpatient (BNVA) | payer BC, SELFPAY | PROVIDERS: PCP Internal Medicine; Visit Provider Nurse Practitioner | DX: R39.9 Unspecified symptoms and signs involving the genitourinary system (principal); N30.01 Acute cystitis with hematuria | CPT/HCPCS: 81000 ==

== ENCOUNTER 2023-08-20 13:53 | Outpatient (CLI) | payer BC, MEDICAID, SELFPAY ==
--- NOTE | 2023-08-20 14:01 | CT_ITS ---
WS: [id number] CT ABDOMEN NON-CONTRAST PLUS CONTRAST TECHNIQUE: Noncontrast CT of the abdomen and contrast-enhanced CT of the abdomen with coronal and sag ittal reformatted images. CLINICAL INFORMATION: L FLANK PAIN COMPARISON: 05/01/2021 DLP: 549.[address] scans at [facility] use at least one of these dose optimization techniques: automated e xposure control; mA and/or kV adjustment per patient size (includes targeted exams where dose is matc hed to clinical indication); or iterative reconstruction. FINDINGS: Lung bases are well aerated. Prior cholecystectomy. Mild hepatomegaly. Diffuse fatty infiltration of the liver. Normal portal vein and splenic vein. Normal spleen. Normal GE junction. Tiny fat-containin g umbilical hernia. Adrenal glands are normal. Normal renal parenchymal enhancement. No hydronephrosis. Pelvis not includ ed on this examination. Celiac and SMA are patent. IMPRESSION: 1. No hydronephrosis in either kidney. No obstructing proximal ureteral calculi. Pelvis not included on this CT abdomen examination. 2. Diffuse fatty filtration of the liver. Mild hepatomegaly. 3. Prior cholecystectomy. 4. Normal caliber abdominal aorta. 5. No other acute abdominal findings.
[2023-08-20] MEDS: iohexol 350 mg/mL 500 mL Btl (per mL) IV (14:16)
== END 2023-08-20 13:54 | disposition home or self-care (01) ==
PROVIDERS: PCP Internal Medicine; Visit Provider Internal Medicine
DX: R10.9 Unspecified abdominal pain (principal); K76.0 Fatty (change of) liver, not elsewhere classified; Z90.49 Acquired absence of other specified parts of digestive tract
CPT/HCPCS: 74170; Q9967

== ENCOUNTER → 2023-09-08 13:09 | Outpatient (BNVA) | payer BC, MEDICAID, SELFPAY | PROVIDERS: PCP Internal Medicine; Visit Provider Nurse Practitioner | DX: S49.92XA Unspecified injury of left shoulder and upper arm, initial encounter; V89.2XXA Person injured in unspecified motor-vehicle accident, traffic, initial encounter | CPT/HCPCS: 73030 ==

== ENCOUNTER → 2023-09-15 13:27 | Outpatient (BNVA) | payer BC, MEDICAID, SELFPAY | PROVIDERS: PCP Internal Medicine; Visit Provider Nurse Practitioner | DX: M25.552 Pain in left hip (principal); R29.4 Clicking hip; M25.551 Pain in right hip; V89.2XXD Person injured in unspecified motor-vehicle accident, traffic, subsequent encounter; M53.3 Sacrococcygeal disorders, not elsewhere classified; G89.29 Other chronic pain | CPT/HCPCS: 73502 ==

== ENCOUNTER 2023-09-16 13:34 | Outpatient (CLI) | payer BC, MEDICAID, SELFPAY ==
--- NOTE | 2023-09-16 13:45 | MR_ITS ---
WS: [id number] MRI LEFT SHOULDER HISTORY: M75.82 - Other shoulder lesions, left shoulder COMPARISON: None available. TECHNIQUE: Multiplanar sequences of the shoulder joint are submitted. Findings minimal osteophyte encroachment upon the myotendinous insertion supraspinatus from the AC sara int. There is a very small amount of subcu deltoid bursal fluid. No subacromial impingement. There is no os acromion. Biceps tendon is in normal position. No rotator cuff muscle atrophy or edema. No tendon tears. No fractures or marrow edema. No definite l abral tear. There is very slight increased T2 signal involving the superior labrum which could repres ent a very early tear or intrasubstance degeneration. This is noted on both the coronal and sagittal view. IMPRESSION: 1. Very minimal AC joint arthritis with minimal encroachment upon the myotendinous insertion supraspi natus. 2. No rotator cuff tear. 3. Very minimal increased T2 signal in the superior labrum. May represent a very minimal early labral tear.
== END 2023-09-16 13:35 | disposition home or self-care (01) ==
LOC: RAD 13:35
PROVIDERS: PCP Internal Medicine; Visit Provider Specialist
DX: M75.82 Other shoulder lesions, left shoulder (principal); M19.012 Primary osteoarthritis, left shoulder
CPT/HCPCS: 73221

== ENCOUNTER 2023-09-28 07:48 | Outpatient (CLI) | payer BC, MEDICAID, SELFPAY ==
--- NOTE | 2023-09-28 07:15 | MR_ITS ---
WS: [id number] MRI RIGHT HIP WITH AND WITHOUT CONTRAST. COMPARISON: Radiographs 09/15/2023 Multiplanar, multisequence imaging is performed with and without contrast. MultiHance 13 mL IV. Symmetric appearance of the hips bilaterally. No marrow edema or fracture. Normal amount of fluid in the hip joint. No significant trochanteric bursitis. No enhancing masses. Symmetric appearance of the muscles surrounding the hips. There is no muscle atrophy or edema. Normally distended bladder. No free fluid or adenopathy in the visualized pelvis. No labral tear is i dentified. There is a very tiny osteophyte along the anterior superior labrum with slight encroachmen t towards the hip joint. There is no edema in the labrum appears intact. Incidental note is made of a LEFT ovarian follicle. IMPRESSION: 1. No marrow edema or fracture. 2. No muscle atrophy or edema. No joint effusion. 3. No enhancing masses.
[2023-09-28] MEDS: gadobenate dimeglumine 20 mL vial IV (09:16)
== END 2023-09-28 07:49 | disposition home or self-care (01) ==
LOC: RAD 07:48
PROVIDERS: PCP Internal Medicine; Visit Provider Specialist
DX: M25.551 Pain in right hip (principal)
CPT/HCPCS: 73723; A9577

== ENCOUNTER 2023-10-08 09:48 | Outpatient (RCR) | payer BC, MEDICAID, SELFPAY | END 2023-10-31 23:59 | disposition home or self-care (01) | LOC: SPT 09:48 | PROVIDERS: PCP Internal Medicine; Visit Provider Nurse Practitioner | DX: M25.512 Pain in left shoulder (principal); M25.551 Pain in right hip | CPT/HCPCS: 97110; 97161 ==

== ENCOUNTER 2023-11-01 06:00 | Outpatient (RCR) | payer BC, MEDICAID, SELFPAY | END 2023-11-12 23:59 | disposition home or self-care (01) | LOC: SPT 06:00 | PROVIDERS: PCP Internal Medicine; Visit Provider Nurse Practitioner | DX: M25.512 Pain in left shoulder (principal); M25.551 Pain in right hip | CPT/HCPCS: 97110 ==

== ENCOUNTER → 2023-11-09 11:45 | Outpatient (BNVA) | payer BC, MEDICAID, SELFPAY | PROVIDERS: PCP Internal Medicine; Visit Provider Orthopaedic Surgery | DX: M47.22 Other spondylosis with radiculopathy, cervical region (principal); M25.551 Pain in right hip | CPT/HCPCS: 72040 ==

== ENCOUNTER 2023-11-19 07:54 | Outpatient (CLI) | payer BC, MEDICAID, SELFPAY ==
--- NOTE | 2023-11-19 08:10 | MM_ITS ---
WS: [id number] BILATERAL SCREENING DIGITAL BREAST MAMMOGRAPHY WITH MILA DISPLACEMENT VIEWS. CAD PERFORMED. HISTORY: SCREEN COMPARISON: 11/30/2017 and 11/24/2016 Bilateral craniocaudal and mediolateral oblique views are performed with tomosynthesis and SM. Mila displacement views in CC and MLO projection also performed. Breasts composition: The breasts are heterogeneously dense, which may obscure small masses. Implants are retropectoral and intact. Dense fibroglandular tissue. No suspicious masses or calcifications. IMPRESSION: MM/[place] [id number] BI-RADS: 2-Benign FOLLOW-UP: 1 Year Follow-up
== END 2023-11-19 07:55 | disposition home or self-care (01) ==
LOC: RAD 07:54
PROVIDERS: PCP Internal Medicine; Visit Provider Nurse Practitioner Women's Health
DX: Z12.31 Encounter for screening mammogram for malignant neoplasm of breast (principal); R92.323 Mammographic fibroglandular density, bilateral breasts; Z98.82 Breast implant status
CPT/HCPCS: 77063; 77067

== ENCOUNTER 2024-06-27 08:21 | Outpatient (RCR) | payer MEDICAID, SELFPAY | END 2024-07-01 18:00 | disposition home or self-care (01) | LOC: SPT 08:21 | PROVIDERS: PCP Internal Medicine; Visit Provider Orthopaedic Surgery | DX: M54.2 Cervicalgia (principal); G89.29 Other chronic pain | CPT/HCPCS: 97161 ==

== ENCOUNTER 2024-07-06 10:21 | Outpatient (CLI) | payer MEDICAID, SELFPAY | END 2024-07-06 10:22 | disposition home or self-care (01) | LOC: RAD 07-07 06:39 | PROVIDERS: PCP Internal Medicine; Visit Provider Orthopaedic Surgery | DX: M47.22 Other spondylosis with radiculopathy, cervical region (principal); M43.02 Spondylolysis, cervical region; M51.36 Other intervertebral disc degeneration, lumbar region; M25.78 Osteophyte, vertebrae; M25.512 Pain in left shoulder | CPT/HCPCS: 72050; 73030 ==

== ENCOUNTER 2025-03-28 09:24 | Outpatient (CLI) | payer OTHER, SELFPAY ==
--- NOTE | 2025-03-28 09:33 | MM_ITS ---
WS: [id number] BILATERAL SCREENING DIGITAL BREAST MAMMOGRAPHY WITH MILA DISPLACEMENT VIEWS. CAD PERFORMED. HISTORY: SCREENING COMPARISON: 11/19/2023, 11/30/2017 Bilateral craniocaudal and mediolateral oblique views are performed with tomosynthesis and SM. Mila displacement views in CC and MLO projection also performed. Breasts composition: The breasts are extremely dense, which lowers the sensitivity of mammography. Retropectoral implants are intact. No capsular contraction. No suspicious masses or calcifications within either breast. Lateral views are limited. Pectoralis muscle is not included. No suspicious findings. MM/MM scr tomosynthesis [id number] IMPRESSION: BI-RADS: 2 - Benign FOLLOW-UP: 1 Year Follow-up
== END 2025-03-28 09:25 | disposition home or self-care (01) ==
PROVIDERS: PCP Internal Medicine; Visit Provider Student in an Organized Health Care Education/Training Program
DX: Z12.31 Encounter for screening mammogram for malignant neoplasm of breast (principal); R92.343 Mammographic extreme density, bilateral breasts; Z98.82 Breast implant status
CPT/HCPCS: 77063; 77067